=== PATIENT | female | born 2000 | race Caucasian/White ===

== ENCOUNTER → 2022-05-05 14:00 | Outpatient (BNVA) | payer MEDICAID, SELFPAY | PROVIDERS: Visit Provider Nurse Practitioner Women's Health | DX: N92.6 Irregular menstruation, unspecified (principal) | CPT/HCPCS: 81025 ==

== ENCOUNTER 2022-05-17 21:46 | Emergency (ER) | payer MEDICAID, SELFPAY ==
[2022-05-17 21:50] VITALS: BP 106/65; PULSE 92; RESP 16; TEMP 36.8; O2SAT 98; BMI 19.7
[2022-05-17 22:02] VITALS: BP 163/90; PULSE 72; RESP 16; TEMP 37; O2SAT 98; BMI 38.9
[2022-05-17 22:47] LABS: Add Urine Microscopic? YES; Bilirubin Urine Neg (Negative); Blood Urine 2+ (Negative); Glucose Urine UA Norm (Normal); Ketones Urine 3+ (Negative); Leukocyte Esterase Urine 1+ (Negative); Nitrate Urine Negative (Negative); Protein Urine Neg (Negative); Urine Appearance SL Hazy (CLEAR); Urine Color Dark Yellow (Yellow); Urobilinogen Urine Norm (Negative); pH Urine 5 (5-7)
--- NOTE | 2022-05-17 22:48 | ED_ITS ---
HPI - Nausea/Vomiting/Diarrhea General: Chief complaint: Nausea/Vomiting/Diarrhea Stated complaint: Vomiting\Spotting Time Seen by Provider: 05/17/22 22:39 History of Present Illness: Ms Reese is a 21-year-old -0-1-2 LMP 03/17/2022 presenting to the emergency department due to nausea vomiting. She reports onset of symptoms 3 days ago associated with lower abdominal and back cr amping. Minimal spotting yesterday however this is resolved. Symptoms are moderate to severe in intensity and worse with any p.o. intake. Associated generalized malaise and sore throat. No other specific changes in health, exacerbating, or alleviating factors identified. Onset (ago): day(s) Description of vomiting: watery Associated nausea: Yes Associated abdominal pain: Yes Location of pain: Other Pain consistency: constant Severity: moderate Quality: cramping Exacerbating factors: eating Relieving factors: none Context: other Associated symtoms: Reports nausea Review of Systems General: Reports: 10 or more systems reviewed and unremarkable except in HPI and below GI: Reports: nausea PFSH ED PFSH: Medical History No pertinent past medical history neghx: htn,dm,thyroid,dvt/pe PCP: None Surgical History No pertinent past surgical history Family History Mother Breast cancer dx ge 20's-- still living; poss lumpectomy and radiation Diabetes Ovarian cancer dx age unknown-- uncertain if hysterectomy Grandmother Hypertension Maternal Grandfather Stroke Maternal Family/Other Breast cancer Maternal Great Grandmother--dx age unknown Denies family history of Colon cancer Heart disease Hyperlipidemia Family history of thyroid problem Uterine cancer Female Reproductive History: Date of last menstrual period: 05/15/22 Physical Exam Const: COMMON NORMALS: alert GENERAL APPEARANCE: cooperative, well developed and ill appearing (somewhat secondary to vomitting) HENMT: COMMON NORMALS: normocephalic and atraumatic HEAD & SCALP: normocephalic and atraumatic THROAT: posterior oropharynx normal Eye: COMMON NORMALS: conjunctivae normal CONJUNCTIVA: Yes conjunctivae normal SCLERA: sclerae normal Neck/C-Spine: COMMON NORMALS: supple GENERAL: Yes trachea midline Resp: COMMON NORMALS: normal respiratory effort EFFORT & INSPECTION: Yes able to speak in complete sentences Cardio: COMMON NORMALS: regular rate and regular rhythm RATE: regular rate RHYTHM: regular rhythm GI: COMMON NORMALS: Soft to palpation PALPATION: Yes Soft to palpation and No Tenderness to palpation present (GI) : COMMON NORMALS: Yes no CVA tenderness BLADDER/KIDNEY EXAM: Yes no CVA tenderness OTHER: Pelvic exam performed with hydraulic chair assembler present. Cervical os visually closed without other acute abnormality identified. Back/Pelvis: COMMON NORMALS: no CVA tenderness Extremity: GENERAL: Yes normal exam except as noted and No edema Neuro: COMMON NORMALS: moves all extremities SENSORIUM/ORIENTATION: Yes alert and No Orientation impaired Psych: COMMON NORMALS: mental status grossly normal and Normal thought process present THOUGHT PROCESS: Normal thought process present Course Vital Signs: Vital signs: Vital Signs Temperature 98.2 F 05/18/22 02:12 Pulse Rate 78 05/18/22 02:12 Respiratory Rate 18 05/18/22 02:12 Blood Pressure 131/68 05/18/22 02:12 Pulse Oximetry 99 05/18/22 02:12 Oxygen Delivery Me thod 05/17/22 22:02 MDM - Nausea/Vomiting/Diarrhea Medical Decision Making 21-year-old lady presenting with abdominal symptoms and nausea and vomiting in the context of . Patient is nontoxic in appearance without evidence of peritonitis on abdominal exam. Prior ultrasound report from 05/07/2022 confirming IUP reviewed. Labs notable for leukocytosis and normal hemoglobin, chemistry panel with mild evidence of dehydration. Urinalysis with hematuria and ketones, sample is grossly contaminated with squamous epithelial cells limiting interpretation. Patient blood type O+. Wet prep negative. POCUS positive for cardiac activity at approx rate 170. Patient improved with ED treatment and able to tolerate oral intake. Patient satisfied for outpatient management with return precautions and follow-up plan discussed. Patient is comfortable with plan. Medical Records I reviewed the patient's medical records. Lab Data I reviewed the patient's lab results. : 05/17/22 22:56 05/17/22 22:56 Laboratory Results WBC 14.7 10^3/uL (4.0-10.0) H 05/17/22 22:56 RBC 3.93 10^6/uL (4.1-5.3) L 05/17/22 22:56 Hgb 12.2 g/dL (11.5-15.3) 05/17/22 22:56 Hct 37.2 % (37.0-47.0) 05/17/22 22:56 MCV 94.7 fl (81-99) 05/17/22 22:56 MCH 31.0 pg (28.0-34.0) 05/17/22 22:56 MCHC 32.8 g/dL (30.0-36.0) 05/17/22 22:56 RDW 12.8 % (12.1-15.1) 05/17/22 22:56 Plt Count 295 10^3/cmm (130-400) 05/17/22 22:56 MPV 9.7 fL (7.4-10.4) 05/17/22 22:56 Neut % (Auto) 90.5 % 05/17/22 22:56 Lymph % (Auto) 5.7 % 05/17/22 22:56 [place] % (Auto) 3.0 % 05/17/22 22:56 Eos % (Auto) 0.0 % 05/17/22 22:56 Baso % (Auto) 0.3 % 05/17/22:56 Neut # (Auto) 13.28 10^3/uL (1.8-7.7) H 05/17/22 22:56 Lymph # (Auto) 0.8 10^3/uL (0.8-4.8) 05/17/22 22:56 [place] # (Auto) 0.4 10^3/uL (0.2-0.9) 05/17/22 22:56 Eos # (Auto) 0.0 10^3/uL (0.0-0.8) 05/17/22 22:56 Baso # (Auto) 0.0 10^3/uL (0.0-0.1) 05/17/22 22:56 Nucleated RBC % (auto) 0 % 05/17/22 22:56 Nucleated RBCs # 0.0 /100WBC 05/17/22 22:56 Sodium 134 mmol/L (136-145) L 05/17/22 22:56 Potassium 3.8 mmol/L (3.5-5.1) 05/17/22 22:56 Chloride 96 mmol/L (98-107) L 05/17/22 22:56 Carbon Dioxide 23 mmol/L (22-29) 05/17/22 22:56 Anion Gap 18.8 (5-19) 05/17/22 22:56 BUN 11 mg/dL (6-20) 05/17/22 22:56 Creatinine 0.5 mg/dL (0.5-0.9) 05/17/22 22:56 GFR Calculation 152.9 mL/min (90-130) H 05/17/22 22:56 Glucose 94 mg/dL (65-115) 05/17/22 22:56 Calculated Osmolality 277 mOsm/kg (285-295) L 05/17/22:56 Calcium 9.6 mg/dL (8.5-10.5) 05/17/22 22:56 Total Bilirubin 0.7 mg/dL (0.15-1.2) 05/17/22 22:56 AST 15 U/L (0-32) 05/17/22:56 ALT 14 U/L (0-33) 05/17/22 22:56 Alkaline Phosphatase 51 U/L (35-105) 05/17/22 22:56 Total Protein 7.5 g/dL (6.6-8.7) 05/17/22 22:56 Albumin 4.7 g/dL (3.5-5.2) 05/17/22 22:56 Globulin 2.8 g/dL (1.3-4.6) 05/17/22 22:56 Ser , Semi-Qnt 989835.00 mIU/mL 05/17/22 22:56 Urine Color Dark yellow (Yellow) 05/17/22 22:37 Urine Appearance Sl hazy (CLEAR) A 05/17/22 22:37 Urine pH 5 (5-7) 05/17/22 22:37 Ur Specific [place] 1.030 (1.005-1.030) 05/17/22 22:37 Urine Protein Neg (Negative) 05/17/22 22:37 Urine Glucose (UA) Norm (Normal) 05/17/22 22:37 Urine Ketones 3+ (Negative) H 05/17/22 22:37 Urine Blood 2+ (Negative) H 05/17/22 22:37 Urine Nitrate Negative (Negative) 05/17/22 22:37 Urine Bilirubin Neg (Negative) 05/17/22 22:37 Urine Urobilinogen Norm mg/dL (Negative) 05/17/22 22:37 Ur Leukocyte Esterase 1+ (Negative) H 05/17/22 22:37 Urine RBC 5-10 /hpf (0-2) H 05/17/22 22:37 Urine WBC 10-15 /hpf (0-5) H 05/17/22 22:37 Ur Squamous Epith Cells Too numerous to cnt /hpf (0-5) H 05/17/22 22:37 Amorphous Sediment Not Reportable 05/17/22 22:37 Urine Bacteria 3+ /hpf (NONE) H 05/17/22 22:37 Blood Type O Positive 05/17/22 22:56 Rho(D) Type Positive 05/17/22 22:56 Discharge Plan Discharge Patient Disposition: Home Clinical Impression: Nausea and vomiting during , Dehydration, Abdominal pain affecting Condition: Stable Prescriptions: New doxylamine succinate 25 mg tablet 12.5 mg PO Q6H PRN (Reason: nausea and vomiting) Qty: 20 0RF pyridoxine (vitamin B6) 25 mg tablet 25 mg PO QID PRN (Reason: nausea and vomiting) Qty: 20 0RF Reglan 10 mg tablet 10 mg PO QID PRN (Reason: nausea and vomiting) Qty: 28 0RF Rx Instructions: 2nd line No Action Gummies 400 mcg-35 mg- 25 mg-5 mg tablet,chewable PO ondansetron HCl 4 mg tablet 4 mg PO Q6H PRN (Reason: nausea and vomiting) Qty: 30 2RF Discharge Orders: Discharge ED (Routine); Ordered 05/18/22 Ordered By: Sandor Silverman Discharge Diet: Advance as tolerated and Clear Liquid Discharge Activity: Increase activity as tolerated Patient Instructions: Nausea and Vomiting in (ED), Dehydration (ED), Abdominal Pain in (ED) Activity Restrictions/Additional Instructions: Thank you for visiting the emergency department. You were seen evaluated for abdominal pain with nausea vomiting during . The exact cause of your symptoms is unclear though we are pleased that you had improvement. Please follow-up with your [facility] registered nurse rn. Return to the emergency department for uncontrolled symptoms or anything else that you are concerned about a feel needs emergency department evaluation. Coding Level of Care Code ED Cloth Cutter for Chg Fwd
[2022-05-17 22:50] LABS: Bacteria Urine 3+ /hpf; Squamous Epithelial Cell Urine TOO NUMEROUS TO CNT /hpf (0-5)
[2022-05-17 22:51] LABS: Add Urine Culture? No
[2022-05-17 23:26] LABS: Basophils % 0.3 %; Hematocrit 37.2 % (37.0-47.0); Hemoglobin 12.2 g/dL (11.5-15.3); Lymphocytes # 0.8 10^3/uL (0.8-4.8); Lymphocytes % 5.7 %; Mean Corpuscular HGB Conc 32.8 g/dL (30.0-36.0); Mean Corpuscular Volume 94.7 fl (81-99); Mean Platelet Volume 9.7 fL (7.4-10.4); Monocytes # 0.4 10^3/uL (0.2-0.9); Neutrophils # 13.28 10^3/uL (1.8-7.7); Neutrophils % 90.5 %; Nucleated Red Blood Cells % 0 %; Platelet Count 295 10^3/cmm (130-400); Red Blood Count 3.93 10^6/uL (4.1-5.3); Red Cell Distribution Width 12.8 % (12.1-15.1); White Blood Count 14.7 10^3/uL (4.0-10.0)
[2022-05-17] MEDS: metoclopramide 5 mg/mL SDV 2 mL 10 MG IVP (23:28)
[2022-05-17] MEDS: sodium chloride 0.9% 1,000 ML 999 ML IV (23:28)
[2022-05-17] MEDS: acetaminophen 1,000 MG/100 ML PIGGYBACK 400 MG IV (23:38)
[2022-05-17 23:58] LABS: Alanine Aminotransferase 14 U/L (0-33); Albumin Level 4.7 g/dL (3.5-5.2); Alkaline Phosphatase 51 U/L (35-105); Anion Gap 18.8 (5-19); Aspartate Amino Transferase 15 U/L (0-32); Blood Urea Nitrogen 11 mg/dL (6-20); Calcium 9.6 mg/dL (8.5-10.5); Carbon Dioxide 23 mmol/L (22-29); Chloride 96 mmol/L (98-107); Globulin 2.8 g/dL (1.3-4.6); Glomerular Filtration Rate 152.9 mL/min (90-130); Glucose 94 mg/dL (65-115); Osmolality Calculated 277 mOsm/kg (285-295); Potassium 3.8 mmol/L (3.5-5.1); Sodium 134 mmol/L (136-145); Total Bilirubin 0.7 mg/dL (0.15-1.2); Total Protein 7.5 g/dL (6.6-8.7)
[2022-05-18] MEDS: sodium chloride 0.9% 1,000 ML 999 ML IV (00:35)
[2022-05-18] MEDS: ondansetron 2 mg/ML SDV 2 mL 4 MG IVP (00:35)
[2022-05-18 02:12] VITALS: BP 131/68; PULSE 78; RESP 18; TEMP 36.8; O2SAT 99
== END 2022-05-18 02:15 | disposition home or self-care (01) ==
PROVIDERS: Nurse Practitioner Family; Emergency Provider Emergency Medicine
DX: O21.9 Vomiting of pregnancy, unspecified (principal); O26.899 Other specified pregnancy related conditions, unspecified trimester; Z3A.00 Weeks of gestation of pregnancy not specified; E86.0 Dehydration; R10.9 Unspecified abdominal pain
CPT/HCPCS: 80053; 81001; 84702; 85025; 86900; 87210; 96361; 96374; 96375; 99284; J2405; J2765; J7030

== ENCOUNTER 2022-05-25 14:42 | Emergency (ER) | payer MEDICAID, SELFPAY ==
[2022-05-25 15:00] VITALS: BP 116/74; PULSE 88; RESP 18; TEMP 36.6; O2SAT 100; BMI 18.1
--- NOTE | 2022-05-25 16:12 | W.ED.GENADLT ---
Documented by User: Navid Huang DO 05/25/22 19:04 HPI - General Adult General: Chief complaint: General Medical Stated complaint: 10ish wk preg, poss miscarriage Time Seen by Provider: 05/25/22 15:43 Source: patient Mode of arrival: ambulatory History of Present Illness: 21-year-old female comes in today complaining of episode of vaginal bleeding several days ago. She was seen at another facility had a beta-hCG of 147,000+. She not had any vaginal bleeding since she is concerned about the viability of her . Reviewing her old records in [facility] she has previously had a confirmed intrauterine and can confirmed first trimester ultrasound which puts her at 9 weeks and 6 days today. She is Rh+ according to the notes. She not have any cramping or pain at this point. Onset (ago): day(s) Associated symptoms: Deny chest pain, confusion, cough, diaphoresis, decreased appetite, dyspnea, fevers/chills, headache(s), malaise, nausea, palpitations, seizures, short of breath, syncope, vomiting or weakness Treatments prior to arrival: none Review of Systems Const: Denies: fever(s), chills, malaise or diaphoresis ENMT: Denies: throat pain, ear or mastoid pain, nasal discharge or nasal congestion Card: Denies: chest pain, palpitations or syncope Resp: Denies: dyspnea GI: Denies: abdominal pain, nausea or vomiting : Denies: flank pain, difficulty voiding, dysuria, urinary frequency or urinary urgency Neuro: Denies: headache(s) or confusion PFSH ED PFSH: Medical History No pertinent past medical history neghx: htn,dm,thyroid,dvt/pe PCP: None Surgical History No pertinent past surgical history Family History Mother Breast cancer dx ge 20's-- still living; poss lumpectomy and radiation Diabetes Ovarian cancer dx age unknown-- uncertain if hysterectomy Grandmother Hypertension Maternal Grandfather Stroke Maternal Family/Other Breast cancer Maternal Great Grandmother--dx age unknown Denies family history of Colon cancer Heart disease Hyperlipidemia Family history of thyroid problem Uterine cancer Social History Smoking and tobacco status: former smoker (quit with confirmation of -- 04/2022) Female Reproductive History: Date of last menstrual period: 03/17/22 Physical Exam Const: GENERAL APPEARANCE: cooperative and comfortable ORIENTATION/CONSCIOUSNESS: Yes awake, Yes oriented to person, Yes oriented to place and Yes oriented to time HENMT: COMMON NORMALS: normocephalic, atraumatic and hearing grossly normal bilaterally HEAD & SCALP: normocephalic and atraumatic Neck/C-Spine: COMMON NORMALS: no JVD Cardio: COMMON NORMALS: no JVD, regular rate, regular rhythm and No murmurs present (Cardio) RATE: regular rate RHYTHM: regular rhythm Extremity: COMMON NORMALS: normal to inspection, capillary refill normal, no clubbing, cyanosis or edema, no calf tenderness and no pedal edema Neuro: SENSORIUM/ORIENTATION: Yes oriented to person, Yes oriented to place and Yes oriented to time Skin: COMMON NORMALS: no rashes or lesions noted GENERAL SKIN EXAM: no rashes or lesions noted Course Vital Signs: Vital signs: Vital Signs Temperature 97.9 F 05/25/22 15:00 Pulse Rate 74 05/25/22 18:15 Respiratory Rate 18 05/25/22 15:00 Blood Pressure 118/70 05/25/22 18:15 Pulse Oximetry 100 05/25/22 15:00 Oxygen Delivery Me thod 05/25/22 15:00 MDM - General Adult Medical Decision Making Care signed out to Dr. Medina at change of shift. See final notes for diagnosis and disposition. Medical Records I reviewed the patient's medical records. Lab Data Radiology Impressions Obstetrics Ultrasound 05/25/22 16:20 IMPRESSION: 1. Limited transabdominal ultrasound exam. Single live intrauterine fetus with good cardiac activity, at about 9 weeks 5 days gestation based on CRL. 2. Large heterogeneous collection, likely a prominent subchorionic hemorrhage as described above. Clinical/sonographic follow-up may be helpful. 3. Other nonacute findings as described above. Suboptimally visualized maternal cervix. Follow-up with endovaginal imaging may be obtained if clinically indicated. Laboratory Results Ser , Semi-Qnt 870074.00 mIU/mL 05/25/22 16:11 Discharge Plan Discharge Patient Disposition: Home Clinical Impression: Threatened miscarriage Condition: Stable Prescriptions: No Action Gummies 400 mcg-35 mg- 25 mg-5 mg tablet,chewable PO doxylamine succinate 25 mg tablet 12.5 mg PO Q6H PRN (Reason: nausea and vomiting) Qty: 20 0RF pyridoxine (vitamin B6) 25 mg tablet 25 mg PO QID PRN (Reason: nausea and vomiting) Qty: 20 0RF Reglan 10 mg tablet 10 mg PO QID PRN (Reason: nausea and vomiting) Qty: 28 0RF Rx Instructions: 2nd line Discharge Orders: Discharge ED (Routine); Ordered 05/25/22 Ordered By: Otis Medina Referrals: Jacqueline Jasso MD [Physician] - 1-3 days Discharge Diet: Advance as tolerated Discharge Activity: Resume usual activity Patient Instructions: Threatened Miscarriage (ED) Activity Restrictions/Additional Instructions: No heavy lifting no sex. Coding Level of Care Code ED Credit Reference Clerk for Chg Fwd Exam Detailed Documented by User: Otis Medina MD 05/25/22 18:11 HPI - General Adult General: Chief complaint: General Medical Stated complaint: 10ish wk preg, poss miscarriage Time Seen by Provider: 05/25/22 15:43 PFSH ED PFSH: Medical History No pertinent past medical history neghx: htn,dm,thyroid,dvt/pe PCP: None Surgical History No pertinent past surgical history Family History Mother Breast cancer dx ge 20's-- still living; poss lumpectomy and radiation Diabetes Ovarian cancer dx age unknown-- uncertain if hysterectomy Grandmother Hypertension Maternal Grandfather Stroke Maternal Family/Other Breast cancer Maternal Great Grandmother--dx age unknown Denies family history of Colon cancer Heart disease Hyperlipidemia Family history of thyroid problem Uterine cancer Social History Smoking and tobacco status: former smoker (quit with confirmation of -- 04/2022) Course Vital Signs: Vital signs: Vital Signs Temperature 97.9 F 05/25/22 15:00 Pulse Rate 74 05/25/22 18:15 Respiratory Rate 18 05/25/22 15:00 Blood Pressure 118/70 05/25/22 18:15 Pulse Oximetry 100 05/25/22 15:00 Oxygen Delivery Me thod 05/25/22 15:00 MDM - General Adult Medical Decision Making Care signed out to Dr. Medina at change of shift. See final notes for diagnosis and disposition. Ultrasound showed IUP with heart rate she also has a subchronic hemorrhage I did discuss the case with Dr. Jasso who is going to follow her tomorrow or inform patient she needs to see her in 1 to 2 days return if any worsening bleeding she is stable for discharge. Lab Data Radiology Impressions Obstetrics Ultrasound 05/25/22 16:20 IMPRESSION: 1. Limited transabdominal ultrasound exam. Single live intrauterine fetus with good cardiac activity, at about 9 weeks 5 days gestation based on CRL. 2. Large heterogeneous collection, likely a prominent subchorionic hemorrhage as described above. Clinical/sonographic follow-up may be helpful. 3. Other nonacute findings as described above. Suboptimally visualized maternal cervix. Follow-up with endovaginal imaging may be obtained if clinically indicated. Laboratory Results Ser , Semi-Qnt 500112.00 mIU/mL 05/25/22 16:11 Discharge Plan Discharge Patient Disposition: Home Clinical Impression: Threatened miscarriage Condition: Stable Prescriptions: No Action Gummies 400 mcg-35 mg- 25 mg-5 mg tablet,chewable PO doxylamine succinate 25 mg tablet 12.5 mg PO Q6H PRN (Reason: nausea and vomiting) Qty: 20 0RF pyridoxine (vitamin B6) 25 mg tablet 25 mg PO QID PRN (Reason: nausea and vomiting) Qty: 20 0RF Reglan 10 mg tablet 10 mg PO QID PRN (Reason: nausea and vomiting) Qty: 28 0RF Rx Instructions: 2nd line Discharge Orders: Discharge ED (Routine); Ordered 05/25/22 Ordered By: Otis Medina Referrals: Jacqueline Jasso MD [Physician] - 1-3 days Discharge Diet: Advance as tolerated Discharge Activity: Resume usual activity Patient Instructions: Threatened Miscarriage (ED) Activity Restrictions/Additional Instructions: No heavy lifting no sex. Coding Level of Care Code ED Credit Reference Clerk for Chg Fwd Exam Detailed
--- NOTE | 2022-05-25 16:20 | USR_ITS ---
PROCEDURE INFORMATION: Exam: US , Limited Exam date and time: 05/25/2022 4:56 PM Age: 21 years old Clinical indication: Lmp or gestational age (in weeks): 9w5d; Antepartum complications; Bleeding; ; Additional info: Elevated hcg LABS AND CLINICAL REPORTS: Last menstrual period start date: 03/17/2022 Gestational age (Established): 9 w 6 d Estimated due date (Established): 12/22/2022 TECHNIQUE: Imaging protocol: Real-time ultrasound of the maternal uterus with image documentation. Exam focused on the clinical indication. COMPARISON: US OB transvaginal CC 05/07/2022 9:44 AM FINDINGS: Gestation: Single intrauterine fetus. heart rate: 164 bpm Placenta: Placenta is poorly visualized at this time but is probably mostly anterior in position. Amniotic fluid: Normal amount of amniotic fluid. [place]-rump length measures 2.9 cm, approximately 9 weeks 5 days gestation. Clinical gestational age was not provided however there has been appropriate interval growth since most recent exam. BIOMETRY: Gestational age (AUA): 9 w 5 d based on CRL MATERNAL: Cervix: Cervical length measures 3 cm however maternal cervix is suboptimally visualized transabdominally. Right ovary/adnexa: Right ovary not definitively identified. Left ovary/adnexa: Left ovary measures 2.1 x 2.2 x 1.8 cm. Left ovary contains a unilocular cyst with internal echoes, likely a hemorrhagic corpus luteum, measuring 1.4 x 1.8 by 1.3 cm. No stromal edema or other suspicious features. There is Doppler flow in left ovarian parenchyma demonstrating normal spectral waveform. Intraperitoneal space: Limited transabdominal OB ultrasound images were obtained in an acute setting. Details are somewhat limited. Endovaginal examination was not performed. No obvious free pelvic fluid. Other findings: A somewhat discrete area of heterogeneous material with internal echoes and through transmission in the anterior aspect, measuring 4.7 x 2.5 x 4.6 cm with discernible internal color Doppler vascularity. US/US OB limited [id number] IMPRESSION: 1. Limited transabdominal ultrasound exam. Single live intrauterine fetus with good cardiac activity, at about 9 weeks 5 days gestation based on CRL. 2. Large heterogeneous collection, likely a prominent subchorionic hemorrhage as described above. Clinical/sonographic follow-up may be helpful. 3. Other nonacute findings as described above. Suboptimally visualized maternal cervix. Follow-up with endovaginal imaging may be obtained if clinically indicated.
[2022-05-25] MEDS: promethazine 25 mg/mL SDV 1 mL 12.5 MG IM (17:45)
[2022-05-25 18:15] VITALS: BP 118/70; PULSE 74
== END 2022-05-25 18:16 | disposition home or self-care (01) ==
PROVIDERS: Family Medicine; Emergency Provider Emergency Medicine
DX: O20.0 Threatened abortion (principal); Z87.891 Personal history of nicotine dependence; Z3A.09 9 weeks gestation of pregnancy
CPT/HCPCS: 36415; 76815; 84702; 96372; 99284; J2550

== ENCOUNTER → 2022-05-26 11:56 | Outpatient (BNVA) | payer MEDICAID, SELFPAY | PROVIDERS: Visit Provider Obstetrics & Gynecology | DX: O09.90 Supervision of high risk pregnancy, unspecified, unspecified trimester (principal); Z3A.00 Weeks of gestation of pregnancy not specified | CPT/HCPCS: 80307; 84315; 87086 ==

== ENCOUNTER → 2022-06-18 14:25 | Outpatient (BNVA) | payer MEDICAID, SELFPAY | PROVIDERS: Visit Provider Obstetrics & Gynecology | DX: O09.899 Supervision of other high risk pregnancies, unspecified trimester; Z3A.00 Weeks of gestation of pregnancy not specified | CPT/HCPCS: 80053; 80307; 84315; 84443; 85025; 86592; 86762; 86803; 86850; 86900; 87086; 87340; 87491; 87591; 87661; 87806; 88175 ==

== ENCOUNTER → 2022-07-16 09:50 | Outpatient (BNVA) | payer MEDICAID, SELFPAY | PROVIDERS: Visit Provider Obstetrics & Gynecology | DX: O09.899 Supervision of other high risk pregnancies, unspecified trimester (principal); Z3A.00 Weeks of gestation of pregnancy not specified | CPT/HCPCS: 82950; 85025 ==

== ENCOUNTER 2022-07-27 12:02 | Emergency (ER) | payer MEDICAID, SELFPAY ==
[2022-07-27 12:14] VITALS: BP 104/71; PULSE 85; RESP 14; TEMP 36.8; O2SAT 98
--- NOTE | 2022-07-27 12:41 | W.ED.BACK ---
HPI - Back Pain/Injury General: Chief Complaint: Back Pain/Injury Stated Complaint: 18 weeks leaking fluid, lower back pain Time Seen by Provider: 07/27/22 12:22 Source: patient Mode of arrival: ambulatory History of Present Illness: 21-year-old SAB 1 female presents emergency room complaining of vaginal leakage. She had watery vaginal leakage since last night. She had a subchorionic hemorrhage earlier on in the she denies any vaginal bleeding. She has a little bit of pelvic cramping she was recently diagnosed with a UTI. Onset (ago): hour(s) Timing: constant Exacerbating factors: none Relieving factors: none Associated symptoms: Deny abdominal pain, chills, change in bowel habits, dysuria, fatigue, fecal incontinence, fever(s), hematuria, myalgias, nausea, tingling/numbness/burning, urinary frequency, urinary urgency, vomiting or weakness Review of Systems Const: Denies: fever(s), chills, fatigue or malaise ENMT: Denies: throat pain, ear or mastoid pain, nasal discharge or nasal congestion Card: Denies: chest pain, palpitations, irregular heart rhythm, edema, dyspnea on exertion or orthopnea Resp: Denies: dyspnea, productive cough or non-productive cough GI: Denies: abdominal pain, nausea, vomiting, fecal incontinence or change in bowel habits : Reports: vaginal discharge (watery); Denies: dysuria, urinary frequency, urinary urgency or hematuria Musc: Denies: neck pain or back pain Skin/Breast: Denies: rash or pruritus PFSH ED PFSH: Medical History No pertinent past medical history neghx: htn,dm,thyroid,dvt/pe PCP: None Surgical History No pertinent past surgical history Family History Mother Breast cancer dx ge 20's-- still living; poss lumpectomy and radiation Diabetes Ovarian cancer dx age unknown-- uncertain if hysterectomy Grandmother Hypertension Maternal Grandfather Stroke Maternal Family/Other Breast cancer Maternal Great Grandmother--dx age unknown Denies family history of Colon cancer Heart disease Hyperlipidemia Family history of thyroid problem Uterine cancer Social History Smoking and tobacco status: former smoker (quit with confirmation of -- 04/2022) Female Reproductive History: Date of last menstrual period: 03/17/22 Physical Exam Const: GENERAL APPEARANCE: cooperative and comfortable ORIENTATION/CONSCIOUSNESS: Yes awake HENMT: COMMON NORMALS: normocephalic, atraumatic and hearing grossly normal bilaterally HEAD & SCALP: normocephalic and atraumatic Resp: COMMON NORMALS: normal respiratory effort, No retractions, No use of accessory muscles and clear to auscultation bilaterally AUSCULTATION: clear to auscultation bilaterally Cardio: COMMON NORMALS: regular rate, regular rhythm and No murmurs present (Cardio) RATE: regular rate RHYTHM: regular rhythm GI: COMMON NORMALS: Soft to palpation and No hepatosplenomegaly present AUSCULTATION: Yes normoactive bowel sounds PALPATION: Yes Soft to palpation, No Tenderness to palpation present (GI), No Guarding due to palpation present (GI) and Yes No hepatosplenomegaly present Extremity: COMMON NORMALS: normal to inspection, capillary refill normal, no clubbing, cyanosis or edema, no calf tenderness and no pedal edema Skin: COMMON NORMALS: no rashes or lesions noted GENERAL SKIN EXAM: no rashes or lesions noted Course Vital Signs: Vital signs: Vital Signs Temperature 98.2 F 07/27/22 12:14 Pulse Rate 85 07/27/22 12:14 Respiratory Rate 14 07/27/22 12:14 Blood Pressure 104/71 07/27/22 12:14 Pulse Oximetry 98 07/27/22 12:14 Oxygen Delivery Me thod 07/27/22 12:14 MDM - Back Pain/Injury Medical Decision Making Testing for amniotic fluid leakage was negative. Physical exam just showed mucus at cervical os GC chlamydia are pending wet mount was negative. She did have some signs of mild dehydration think she is getting back discomfort from muscle spasms given IV fluids discharge home follow-up with OB as needed. There was no sign of infection in the UA. Medical Records I reviewed the patient's medical records. Labs I reviewed the patient's lab results. Laboratory Results Insulin-like GF I Negative 07/27/22 13:47 Urine Color Yellow (Yellow) 07/27/22 12:41 Urine Appearance Clear (CLEAR) 07/27/22 12:41 Urine pH 6 (5-7) 07/27/22 12:41 Ur Specific [place] 1.020 (1.005-1.030) 07/27/22 12:41 Urine Protein Neg (Negative) 07/27/22 12:41 Urine Glucose (UA) Norm (Normal) 07/27/22 12:41 Urine Ketones 1+ (Negative) H 07/27/22 12:41 Urine Blood Neg (Negative) 07/27/22 12:41 Urine Nitrate Negative (Negative) 07/27/22 12:41 Urine Bilirubin Neg (Negative) 07/27/22 12:41 Urine Urobilinogen Norm mg/dL (Negative) 07/27/22 12:41 Ur Leukocyte Esterase Negative (Negative) 07/27/22 12:41 Discharge Plan Discharge Patient Disposition: Home Clinical Impression: Dehydration, Musculoskeletal back pain, Second trimester Condition: Stable Prescriptions: No Action Gummies 400 mcg-35 mg- 25 mg-5 mg tablet,chewable 1 tab PO DAILY Discharge Orders: Discharge ED (Routine); Ordered 07/27/22 Ordered By: Navid Huang Discharge Diet: Usual diet Discharge Activity: Resume usual activity Patient Instructions: Opioid Safety, Pain Management Activity Restrictions/Additional Instructions: You were seen today for concern of vaginal fluid leak. Exam and testing done shows no evidence of amniotic fluid. Cultures were done that are still pending vaginal swab wet mount was unremarkable. Urine showed ketones but no signs of infection. Did appear to be behind on fluid which I think is causing some back spasm and discomfort. Increase fluids by mouth. Follow-up with your OB as previously scheduled. Coding Level of Care Code ED Research Soil Scientist for Chg Fwd Exam Detailed
[2022-07-27 12:53] LABS: Add Urine Microscopic? NO; Charge for UA Resulting for Rev
[2022-07-27 12:56] LABS: Bilirubin Urine Neg (Negative); Blood Urine Neg (Negative); Glucose Urine UA Norm (Normal); Ketones Urine 1+ (Negative); Leukocyte Esterase Urine Negative (Negative); Nitrate Urine Negative (Negative); Protein Urine Neg (Negative); Urine Appearance Clear (CLEAR); Urine Color Yellow (Yellow); Urobilinogen Urine Norm (Negative); pH Urine 6 (5-7)
[2022-07-27 14:32] LABS: Actim Prom Negative
[2022-07-27] MEDS: sodium chloride 0.9% 1,000 ML 999 ML IV ×2 (14:54→16:06)
[2022-07-27 16:07] VITALS: BP 114/65; PULSE 80; RESP 17; O2SAT 100
== END 2022-07-27 16:10 | disposition home or self-care (01) ==
PROVIDERS: Nurse Practitioner Family; Emergency Provider Family Medicine
DX: O26.892 Other specified pregnancy related conditions, second trimester (principal); E86.0 Dehydration; M79.18 Myalgia, other site; Z3A.18 18 weeks gestation of pregnancy
CPT/HCPCS: 81003; 84112; 87210; 87491; 87591; 96360; 99284; J7030

== ENCOUNTER → 2022-08-03 09:26 | Outpatient (BNVA) | payer MEDICAID, SELFPAY | PROVIDERS: Visit Provider Obstetrics & Gynecology | DX: Z36.89 Encounter for other specified antenatal screening (principal) | CPT/HCPCS: 76805 ==

== ENCOUNTER → 2022-08-04 12:00 | Outpatient (BNVA) | payer MEDICAID, SELFPAY | PROVIDERS: Visit Provider Obstetrics & Gynecology | DX: O09.899 Supervision of other high risk pregnancies, unspecified trimester (principal); Z3A.00 Weeks of gestation of pregnancy not specified | CPT/HCPCS: 84315; 87086 ==

== ENCOUNTER 2024-01-15 12:12 | Emergency (ER) | payer MEDICAID, SELFPAY ==
[2024-01-15 12:22] VITALS: BP 138/86; PULSE 83; RESP 16; TEMP 36.8; O2SAT 99
--- NOTE | 2024-01-15 12:46 | ED_ITS ---
HPI - Female Genitourinary 2 General: Chief complaint: Urogenital-Female Stated complaint: back pain, blood in urine Time Seen by Provider: 01/15/24 12:28 History of Present Illness: Patient presents to the ER with 2 weeks of abdominal cramping and bilateral flank pain for the last 2 days. She did notice some hematuria today. Patient this pain is sharp and stabbing when it comes but it comes and goes with no known rhyme or reason. Patient did take multiple test at home and they were negative. Patient also stated she started her menses today. Date of Last Menstrual Period: 01/15/24 Review of Systems 2 General: Reports: 10 or more systems reviewed and unremarkable except in HPI and below PFSH ED 2 PFSH: Medical History No pertinent past medical history neghx: htn,dm,thyroid,dvt/pe PCP: None Surgical History No pertinent past surgical history Family History Mother Breast cancer dx ge 20's-- still living; poss lumpectomy and radiation Diabetes Ovarian cancer dx age unknown-- uncertain if hysterectomy Grandmother Hypertension Maternal Grandfather Stroke Maternal Family/Other Breast cancer Maternal Great Grandmother--dx age unknown Denies family history of Colon cancer Heart disease Hyperlipidemia Family history of thyroid problem Uterine cancer Social History Smoking and tobacco/nicotine status: former use of tobacco/nicotine (quit with confirmation of -- 04/2022) Female Reproductive History: Date of last menstrual period: 01/15/24 Physical Exam 2 Const: COMMON NORMALS: no acute distress, average body habitus, patient oriented x3, no limitations, healthy appearing, alert and well nourished HENMT: COMMON NORMALS: normocephalic, atraumatic, hearing grossly normal bilaterally, external ears normal, Normal external nose present and moist oral mucous membranes HEAD & SCALP: normocephalic and atraumatic NOSE: Normal external nose present EXTERNAL EAR: Yes external ears normal Neck/C-Spine: COMMON NORMALS: no JVD Chest: COMMONS NORMALS: normal inspection of the chest and normal palpation of entire chest wall Resp: COMMON NORMALS: normal respiratory effort, No retractions, No use of accessory muscles and clear to auscultation bilaterally AUSCULTATION: clear to auscultation bilaterally Cardio: COMMON NORMALS: no JVD, regular rate, regular rhythm, S1 normal heart sound present, S2 normal heart sound present, No gallops present (Cardio), No clicks present (Cardio) and No murmurs present (Cardio) RATE: regular rate RHYTHM: regular rhythm HEART SOUNDS: S1 normal heart sound present and S2 normal heart sound present GI: COMMON NORMALS: Normal to inspection, nondistended, normoactive bowel sounds present, Soft to palpation and No hepatosplenomegaly present; negative for non-tender (Mildly tender to palpation over suprapubic region) P ALPATION: Yes Soft to palpation and Yes No hepatosplenomegaly present Neuro: COMMON NORMALS: patient oriented x3 SENSORIUM/ORIENTATION: Yes alert Course 2 Vital Signs: Vital signs: Vital Signs Temperature 98.3 F 01/15/24 12:22 Pulse Rate 64 01/15/24 14:42 Respiratory Rate 14 01/15/24 14:42 Blood Pressure 109/76 01/15/24 14:42 Pulse Oximetry 97 01/15/24 14:42 Oxygen Delivery Me thod Nasal Cannula 01/15/24 13:59 Oxygen Flow Rate 2 01/15/24 13:59 MDM - Female Medical Decision Making Patient had lab work and x-ray lab work included CBC CMP urinalysis hCG all which was negative, x-ray of the abdomen was negative, these results was discussed with the patient who understood she needs further workup. Patient be referred back to her family practice doc for this workup. Patient be discharged from the ER. Differential Diagnosis Likely abdominal pain; Unlikely acute appendicitis, calculus of kidney, constipation, diverticulitis, endometriosis, gastroenteritis, pancreatitis or small bowel obstruction Medical Records I reviewed the patient's medical records. Lab Data I reviewed the patient's lab results. 01/15/24 13:36 01/15/24 13:36 Radiology Impressions Abdomen X-Ray 01/15/24 13:30 IMPRESSION: No acute findings. Laboratory Results WBC 5.70 10^3/uL (3.29-11.43) 01/15/24 13:36 RBC 4.25 10^6/uL (3.85-5.65) 01/15/24 13:36 Hgb 12.90 g/dL (11.27-16.99) 01/15/24 13:36 Hct 38.9 % (36-47) 01/15/24 13:36 MCV 91.5 fl (85-98) 01/15/24 13:36 MCH 30.4 pg (27-33) 01/15/24 13:36 MCHC 33.2 g/dL (30-55) 01/15/24 13:36 RDW 12.6 % (12.1-15.1) 01/15/24 13:36 Plt Count 226 10^3/cmm (157-399) 01/15/24 13:36 MPV 10.4 fL (7.4-10.4) 01/15/24 13:36 Neut % (Auto) 52.5 % 01/15/24 13:36 Lymph % (Auto) 40.5 % 01/15/24 13:36 Dare % (Auto) 5.8 % 01/15/24 13:36 Eos % (Auto) 0.5 % 01/15/24 13:36 Baso % (Auto) 0.5 % 01/15/24 13:36 Neut # (Auto) 2.99 10^3/uL (1.8-7.7) 01/15/24 13:36 Lymph # (Auto) 2.3 10^3/uL (0.8-4.8) 01/15/24 13:36 Dare # (Auto) 0.3 10^3/uL (0.2-0.9) 01/15/24 13:36 Eos # (Auto) 0.0 10^3/uL (0.0-0.8) 01/15/24 13:36 Baso # (Auto) 0.0 10^3/uL (0.0-0.1) 01/15/24 13:36 Nucleated RBC % (auto) 0 % 01/15/24 13:36 Nucleated RBCs # 0.0 /100WBC 01/15/24 13:36 Sodium 141 mmol/L (136-145) 01/15/24 13:36 Potassium 3.8 mmol/L (3.5-5.1) 01/15/24 13:36 Chloride 106 mmol/L (98-107) 01/15/24 13:36 Carbon Dioxide 24 mmol/L (22-29) 01/15/24 13:36 Anion Gap 14.8 (5-19) 01/15/24 13:36 BUN 9 mg/dL (6-20) 01/15/24 13:36 Creatinine 0.6 mg/dL (0.5-0.9) 01/15/24 13:36 GFR Calculation 121.8 mL/min (90-130) 01/15/24 13:36 Glucose 90 mg/dL (65-115) 01/15/24 13:36 Calculated Osmolality 290 mOsm/kg (285-295) 01/15/24 13:36 Calcium 9.1 mg/dL (8.5-10.5) 01/15/24 13:36 Total Bilirubin 0.5 mg/dL (0.15-1.2) 01/15/24 13:36 AST 13 U/L (0-32) 01/15/24 13:36 ALT 7 U/L (0-33) 01/15/24 13:36 Alkaline Phosphatase 66 U/L (35-105) 01/15/24 13:36 Total Protein 7.5 g/dL (6.6-8.7) 01/15/24 13:36 Albumin 4.6 g/dL (3.5-5.2) 01/15/24 13:36 Globulin 2.9 g/dL (1.3-4.6) 01/15/24 13:36 HCG, Qual Negative (Negative) 01/15/24 12:15 Urine Color Yellow (Yellow) 01/15/24 12:15 Urine Appearance Clear (CLEAR) 01/15/24 12:15 Urine pH 5 (5-7) 01/15/24 12:15 Ur Specific [place] 1.010 (1.005-1.030) 01/15/24 12:15 Urine Protein Neg (Negative) 01/15/24 12:15 Urine Glucose (UA) Norm (Normal) 01/15/24 12:15 Urine Ketones Negative (Negative) 01/15/24 12:15 Urine Blood 3+ (Negative) H 01/15/24 12:15 Urine Nitrate Negative (Negative) 01/15/24 12:15 Urine Bilirubin Neg (Negative) 01/15/24 12:15 Urine Urobilinogen Norm mg/dL (Negative) 01/15/24 12:15 Ur Leukocyte Esterase Negative (Negative) 01/15/24 12:15 Urine RBC 0-4 /hpf (0-2) H 01/15/24 12:15 Urine WBC 0-4 /hpf (0-5) H 01/15/24 12:15 Ur Squamous Epith Cells 0-4 /hpf (0-5) H 01/15/24 12:15 Amorphous Sediment Not Reportable 01/15/24 12:15 Urine Bacteria 1+ /hpf (NONE) H 01/15/24 12:15 All radiology interpretation(s) finalized by discharge Discharge Plan Discharge Patient Disposition: Home Clinical Impression: Combined abdominal and pelvic pain Condition: Stable Prescriptions: No Action promethazine 12.5 mg tablet 12.5 mg PO Q6H PRN citalopram [Celexa] 10 mg tablet 10 mg PO DAILY Qty: 90 4RF Gummies 400 mcg-35 mg- 25 mg-5 mg tablet,chewable 1 tab PO DAILY acyclovir 400 mg tablet 400 mg PO TID Qty: 21 0RF acyclovir 400 mg tablet 400 mg PO BID Qty: 60 3RF Discharge Orders: Discharge ED (Routine); Ordered 01/15/24 Ordered By: Amari Keita Patient Instructions: Pelvic Pain in Women (ED), Abdominal Pain (ED) Activity Restrictions/Additional Instructions: Your evaluation in ER did not show any acute cause of your symptoms. Please follow-up with your family practice physician and/or [facility] PRESS TENDER for further evaluation and treatment. Stand Alone Forms: Work/School Release Coding Level of Care Code ED Director Construction Services for Maria Dolores Alarcon
[2024-01-15 13:24] LABS: Add Urine Microscopic? YES; Bilirubin Urine Neg (Negative); Blood Urine 3+ (Negative); Glucose Urine UA Norm (Normal); Ketones Urine Negative (Negative); Leukocyte Esterase Urine Negative (Negative); Nitrate Urine Negative (Negative); Protein Urine Neg (Negative); RBC Urine 0-4 /hpf (0-2); Squamous Epithelial Cell Urine 0-4 /hpf (0-5); Urine Appearance Clear (CLEAR); Urine Color Yellow (Yellow); Urobilinogen Urine Norm (Negative); WBC Urine 0-4 /hpf (0-5); pH Urine 5 (5-7)
[2024-01-15 13:25] LABS: Add Urine Culture? No; Bacteria Urine 1+ /hpf
--- NOTE | 2024-01-15 13:30 | XRR_ITS ---
PROCEDURE INFORMATION: Exam: XR Abdomen Exam date and time: 01/15/2024 1:57 PM Age: 23 years old Clinical indication: Abdominal pain; Generalized; Additional info: Abd/pelvic pain TECHNIQUE: Imaging protocol: Radiologic exam of the abdomen. Views: Frontal supine view of the abdomen. 1 View. COMPARISON: No relevant prior studies available. FINDINGS: Gastrointestinal tract: Normal. No bowel dilation. Normal stool amount. Bones/joints: Unremarkable. XR/XR abdomen 1V* [id number] IMPRESSION: No acute findings.
[2024-01-15 13:47] LABS: Basophils % 0.5 %; Eosinophils % 0.5 %; Hematocrit 38.9 % (36-47); Lymphocytes # 2.3 10^3/uL (0.8-4.8); Lymphocytes % 40.5 %; Mean Corpuscular HGB Conc 33.2 g/dL (30-55); Mean Corpuscular Hemoglobin 30.4 pg (27-33); Mean Corpuscular Volume 91.5 fl (85-98); Mean Platelet Volume 10.4 fL (7.4-10.4); Monocytes # 0.3 10^3/uL (0.2-0.9); Monocytes % 5.8 %; Neutrophils # 2.99 10^3/uL (1.8-7.7); Neutrophils % 52.5 %; Nucleated Red Blood Cells % 0 %; Platelet Count 226 10^3/cmm (157-399); Red Blood Count 4.25 10^6/uL (3.85-5.65); Red Cell Distribution Width 12.6 % (12.1-15.1)
[2024-01-15 13:59] VITALS: BP 124/84; O2SAT 93
[2024-01-15 14:04] LABS: Alanine Aminotransferase 7 U/L (0-33); Albumin Level 4.6 g/dL (3.5-5.2); Alkaline Phosphatase 66 U/L (35-105); Anion Gap 14.8 (5-19); Aspartate Amino Transferase 13 U/L (0-32); Blood Urea Nitrogen 9 mg/dL (6-20); Calcium 9.1 mg/dL (8.5-10.5); Carbon Dioxide 24 mmol/L (22-29); Chloride 106 mmol/L (98-107); Creatinine Clr Calc Pharmacy 131.7389; Globulin 2.9 g/dL (1.3-4.6); Glomerular Filtration Rate 121.8 mL/min (90-130); Glucose 90 mg/dL (65-115); Osmolality Calculated 290 mOsm/kg (285-295); Potassium 3.8 mmol/L (3.5-5.1); Sodium 141 mmol/L (136-145); Total Bilirubin 0.5 mg/dL (0.15-1.2); Total Protein 7.5 g/dL (6.6-8.7)
[2024-01-15 14:18] LABS: HCG Qualitative Urine. Negative (Negative)
[2024-01-15 14:42] VITALS: BP 109/76; PULSE 64; RESP 14; O2SAT 97
== END 2024-01-15 14:47 | disposition home or self-care (01) ==
PROVIDERS: Emergency Provider Emergency Medicine
DX: R10.2 Pelvic and perineal pain (principal); Z87.891 Personal history of nicotine dependence
CPT/HCPCS: 36415; 74018; 80053; 81001; 81025; 85025; 99284

== ENCOUNTER 2024-05-20 10:07 | Emergency (ER) | payer MEDICAID, SELFPAY ==
[2024-05-20 10:12] VITALS: BP 122/86; PULSE 101; RESP 18; TEMP 36.8; O2SAT 96; BMI 22.6
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
[2024-05-20] MEDS: ketorolac 60 mg/2 mL INJ IM (10:40)
[2024-05-20] MEDS: orphenadrine 30 mg/mL Inj 2 mL 60 MG IM (10:42)
[2024-05-20 10:53] VITALS: BP 115/75; PULSE 99; O2SAT 100
== END 2024-05-20 10:55 | disposition home or self-care (01) ==
PROVIDERS: Emergency Provider Emergency Medicine
DX: G89.29 Other chronic pain (principal); M54.2 Cervicalgia; Z87.891 Personal history of nicotine dependence
CPT/HCPCS: 96372; 99284; J1885; J2360

== ENCOUNTER 2024-05-29 08:17 | Emergency (ER) | payer MEDICAID, SELFPAY ==
--- NOTE | 2024-05-29 08:23 | XR_ITS ---
WS: [id number] Exam: XR chest 1V portable [id number] Date/Time of Exam: 05/29/2024 8:23 AM Reason For Exam: dyspnea/cough No priors. The lungs are fully expanded and clear. Normal cardiomediastinal silhouette. Bony elements are intact . XR/XR chest 1V portable [id number] IMPRESSION: 1. No acute cardiopulmonary finding.
[2024-05-29 08:32] VITALS: BP 113/67; PULSE 83; RESP 16; TEMP 36.7; O2SAT 99; BMI 22.3
[2024-05-29 08:55] VITALS: BP 113/67
[2024-05-29] MEDS: ketorolac 60 mg/2 mL INJ IM (09:13)
--- NOTE | 2024-05-29 09:13 | ED_ITS ---
HPI - Chest Pain General: Chief Complaint: Chest Pain Stated Complaint: chest pains through side and back cant breathe Time Seen by Provider: 05/29/24 08:21 Source: patient Mode of arrival: ambulatory Limitations: no limitations History of Present Illness: Patient is a 23-year-old female presents to ED today with a complaint of left- sided chest pain that began yesterday evening. She feels like pain is worse with deep inhalation, palpation, and movement. She feels like she cannot take a deep breath. She is not having any URI-like symptoms such as cough, chest congestion, nasal congestion/rhinorrhea. She is not running fevers. No recent injury or trauma to her chest. She is not having back pain. No abdominal pain. She arrives in no acute distress with stable vital signs. MD complaint: chest pain Onset (ago): day(s) (yesterday) Timing of current episode: constant Prior episodes: No Pain location: left chest and lateral Pain radiation: none Severity: moderate Relieving factors: nothing Exacerbating factors: inspiration, palpation and movement Associated symptoms: Reports no associated symptoms; Deny abdominal pain, dyspnea, fever(s), nausea, palpitations, syncope or vomiting Treatment prior to arrival: none Risk Factors: Coronary artery disease risk factors: none Thoracic aortic dissection risk factors: none Related Data Home Medications Medication Instructions Recorded Confirmed PNV 153-FA 400 mcg-om3 35 mg-dha 1 tab PO DAILY 05/05/22 08/04/22 25 mg-epa 5 mg-fish oil chew tablet ( Gummies) promethazine 12.5 mg tablet 12.5 mg PO Q6H PRN 08/04/22 08/04/22 Previous Rx's Medication Instructions Recorded citalopram 10 mg tablet (Celexa) 10 mg PO DAILY #90 tabs 08/04/22 acyclovir 400 mg tablet 400 mg PO BID #60 tabs 09/15/22 acyclovir 400 mg tablet 400 mg PO TID #21 tabs 09/15/22 baclofen 5 mg tablet 5 mg PO TID PRN muscle spasm #30 05/20/24 tabs ibuprofen 800 mg tablet 800 mg PO TID #30 tabs 05/20/24 tramadol 50 mg tablet 50 mg PO Q6H PRN pain #20 tabs 05/20/24 Allergies Allergy/AdvReac Type Severity Reaction Status Date / Time Sulfa (Sulfonamide Allergy ALGY-Hives Verified 05/20/24 10:21 Antibiotics) Review of Systems Const: Denies: fever(s), chills, body aches, fatigue or malaise ENMT: Denies: throat pain, odynophagia, nasal discharge, nasal congestion or sinus pain Card: Reports: chest pain; Denies: palpitations, irregular heart rhythm, edema, swelling of feet/ankles, lightheadedness, syncope, pre-syncope, dyspnea on exertion, orthopnea, leg pain with exertion or acrocyanosis Resp: Reports: pain on inspiration; Denies: dyspnea, productive cough, non-productive cough, wheezing, change in phlegm color, hemoptysis or chest congestion GI: Denies: abdominal pain, nausea, vomiting or diarrhea : Denies: flank pain, difficulty voiding, dysuria, urinary frequency, ur inary urgency or urinary hesitancy Musc: Denies: neck pain, back pain, extremity pain, extremity swelling, joint pain or joint swelling Skin/Breast: Denies: rash Neuro: Denies: headache(s) or dizziness PFSH ED PFSH: Medical History No pertinent past medical history neghx: htn,dm,thyroid,dvt/pe PCP: None Surgical History No pertinent past surgical history Family History Mother Breast cancer dx ge 20's-- still living; poss lumpectomy and radiation Diabetes Ovarian cancer dx age unknown-- uncertain if hysterectomy Grandmother Hypertension Maternal Grandfather Stroke Maternal Family/Other Breast cancer Maternal Great Grandmother--dx age unknown Denies family history of Colon cancer Heart disease Hyperlipidemia Family history of thyroid problem Uterine cancer Social History Smoking and tobacco/nicotine status: former use of tobacco/nicotine (quit with confirmation of -- 04/2022) Physical Exam Const: COMMON NORMALS: no acute distress, average body habitus, patient oriented x3, no limitations, healthy appearing, alert and well nourished GENERAL APPEARANCE: cooperative ORIENTATION/CONSCIOUSNESS: Yes awake, Yes oriented to person, Yes oriented to place and Yes oriented to time Chest: COMMONS NORMALS: normal inspection of the chest OTHER: pain is easily reproducible with palpation of her left anterior and lateral chest wall; no LUQ abdominal renzo/no CVA tenderness Resp: COMMON NORMALS: normal respiratory effort and clear to auscultation bilaterally AUSCULTATION: clear to auscultation bilaterally Cardio: COMMON NORMALS: regular rate and regular rhythm RATE: regular rate RHYTHM: regular rhythm GI: COMMON NORMALS: Normal to inspection, nondistended, normoactive bowel sounds present, Soft to palpation, non-tender, No hepatosplenomegaly present and no masses PALPATION: Yes Soft to palpation and Yes No hepatosplenomegaly present : COMMON NORMALS: Yes no CVA tenderness BLADDER/KIDNEY EXAM: Yes no CVA tenderness Back/Pelvis: COMMON NORMALS: no CVA tenderness, thoracic and lumbar spine normal to inspection, no thoracic nor lumbar tenderness, thoraco-lumbar ROM normal and straight leg raise negative bilaterally Extremity: GENERAL: Yes normal exam except as noted Neuro: COMMON NORMALS: patient oriented x3, moves all extremities, no focal motor deficits and no sensory deficits noted SENSORIUM/ORIENTATION: Yes alert, Yes oriented to person, Yes oriented to place and Yes oriented to time Skin: COMMON NORMALS: no rashes or lesions noted GENERAL SKIN EXAM: no rashes or lesions noted Course Vital Signs: Vital signs: Vital Signs Temperature 98.1 F 05/29/24 08:32 Pulse Rate 75 05/29/24 10:16 Respiratory Rate 16 05/29/24 08:32 Blood Pressure 121/71 05/29/24 10:16 Pulse Oximetry 98 05/29/24 10:16 Oxygen Delivery Me thod Room Air 05/29/24 08:32 MDM - Chest Pain Medical Decision Making Patient clinically appears in no acute distress. Her vital signs are stable. She has easily reproducible pain to her left anterior and lateral chest wall. Breath sounds are normal. Her CXR is unremarkable. She did gain relief with IM Toradol. Recommend NSAIDs at home as well as ice and heat. Follow-up with primary care in a week if symptoms do not seem to be improving. Return precautions discussed. Medical Records I reviewed the patient's medical records. Lab Data Radiology Impressions Chest X-Ray 05/29/24 08:23 IMPRESSION: 1. No acute cardiopulmonary finding. All radiology interpretation(s) finalized by discharge Discharge Plan Discharge Patient Disposition: Home Clinical Impression: Acute chest wall pain Condition: Stable Prescriptions: No Action promethazine 12.5 mg tablet 12.5 mg PO Q6H PRN citalopram [Celexa] 10 mg tablet 10 mg PO DAILY Qty: 90 4RF Gummies 400 mcg-35 mg- 25 mg-5 mg tablet,chewable 1 tab PO DAILY acyclovir 400 mg tablet 400 mg PO TID Qty: 21 0RF acyclovir 400 mg tablet 400 mg PO BID Qty: 60 3RF ibuprofen 800 mg tablet 800 mg PO TID Qty: 30 0RF baclofen 5 mg tablet 5 mg PO TID PRN (Reason: muscle spasm) Qty: 30 0RF tramadol 50 mg tablet 50 mg PO Q6H PRN (Reason: pain) Qty: 20 0RF Discharge Orders: Discharge ED (Routine); Ordered 05/29/24 Ordered By: Mallory Khan Patient Instructions: Chest Pain - Chest Wall, Costochondritis (DC), Chest Wall Pain (ED) Activity Restrictions/Additional Instructions: As we discussed, I will have case management set you up with a primary care provider for further evaluation. Continue anti-inflammatories every 6-8 hours as well as ice and heat. You may return to the emergency department for worsening pain, shortness of breath, significant difficulty breathing, fevers, passing out episodes, or any other concerns you may have. Coding Level of Care Code ED Change Management Specialist for [facility]
[2024-05-29 10:16] VITALS: BP 121/71; PULSE 75; O2SAT 98
--- NOTE | 2024-05-30 09:55 | DCPLANNER ---
Message sent to [facility]
== END 2024-05-29 10:18 | disposition home or self-care (01) ==
PROVIDERS: Emergency Provider Physician Assistant
DX: R07.89 Other chest pain (principal); Z87.891 Personal history of nicotine dependence
CPT/HCPCS: 71045; 96372; 99284; J1885

== ENCOUNTER 2024-08-30 14:25 | Emergency (ER) | payer MEDICAID, SELFPAY ==
[2024-08-30 15:10] VITALS: BP 95/58; PULSE 70; RESP 14; TEMP 36.7; O2SAT 99; BMI 21.8
[2024-08-30 15:22] LABS: Bilirubin Urine Negative (Negative); Blood Urine Negative (Negative); Glucose Urine UA Negative (Normal); Ketones Urine Negative (Negative); Leukocyte Esterase Urine 2+ (Negative); Nitrate Urine Negative (Negative); Protein Urine Negative (Negative); Specific Gravity, Urine 1.023 (1.005-1.030); Urine Appearance Cloudy (CLEAR); Urine Color Yellow (Yellow); Urobilinogen Urine 0.2 mg/dL (Negative)
[2024-08-30 15:25] LABS: Add Urine Microscopic? YES; Bacteria Urine 3+ /hpf; Hyaline Casts Urine 2.87 /lpf; RBC Urine 0-2 /hpf (0-2)
[2024-08-30 15:38] LABS: HCG, Serum Qual Negative (Negative)
[2024-08-30 15:40] LABS: Add Urine Culture? Yes
--- NOTE | 2024-08-30 16:23 | ED_ITS ---
HPI - Female Genitourinary General: Chief complaint: Urogenital-Female Stated complaint: burning in vaginal area Time Seen by Provider: 08/30/24 16:06 Source: patient Mode of arrival: ambulatory Limitations: no limitations History of Present Illness: 23-year-old female who states she has be en having dysuria over the last 5 to 6 days. States it is a burning pain. She denies any severe vaginal discharge or bleeding she states she is not currently sexually active she denies any fevers denies any vomiting or diarrhea. Associated symptoms: Deny abdominal pain, headache(s) or nausea Date of Last Menstrual Period: 08/08/24 Related Data Home Medications Medication Instructions Recorded Confirmed PNV 153-FA 400 mcg-om3 35 mg-dha 1 tab PO DAILY 05/05/22 08/04/22 25 mg-epa 5 mg-fish oil chew tablet ( Gummies) promethazine 12.5 mg tablet 12.5 mg PO Q6H PRN 08/04/22 08/04/22 Previous Rx's Medication Instructions Recorded citalopram 10 mg tablet (Celexa) 10 mg PO DAILY #90 tabs 08/04/22 acyclovir 400 mg tablet 400 mg PO BID #60 tabs 09/15/22 acyclovir 400 mg tablet 400 mg PO TID #21 tabs 09/15/22 baclofen 5 mg tablet 5 mg PO TID PRN muscle spasm #30 05/20/24 tabs ibuprofen 800 mg tablet 800 mg PO TID #30 tabs 05/20/24 tramadol 50 mg tablet 50 mg PO Q6H PRN pain #20 tabs 05/20/24 cephalexin 500 mg capsule 500 mg PO TID 7 days #21 caps 08/30/24 Allergies Allergy/AdvReac Type Severity Reaction Status Date / Time Sulfa (Sulfonamide Allergy ALGY-Hives Verified 08/30/24 15:13 Antibiotics) Review of Systems Const: Denies: fever(s), chills, body aches or change in appetite ENMT: Denies: throat pain or dental pain Card: Denies: chest pain Resp: Denies: dyspnea GI: Denies: abdominal pain, nausea, vomiting or diarrhea : Reports: dysuria Musc: Denies: neck pain or back pain Skin/Breast: Denies: rash Neuro: Denies: headache(s) PFSH ED PFSH: Medical History No pertinent past medical history neghx: htn,dm,thyroid,dvt/pe PCP: None Surgical History No pertinent past surgical history Family History Mother Breast cancer dx ge 20's-- still living; poss lumpectomy and radiation Diabetes Ovarian cancer dx age unknown-- uncertain if hysterectomy Grandmother Hypertension Maternal Grandfather Stroke Maternal Family/Other Breast cancer Maternal Great Grandmother--dx age unknown Denies family history of Colon cancer Heart disease Hyperlipidemia Family history of thyroid problem Uterine cancer Social History Smoking and tobacco/nicotine status: former use of tobacco/nicotine (quit with confirmation of -- 04/2022) Female Reproductive History: Date of last menstrual period: 08/08/24 Physical Exam Const: COMMON NORMALS: no acute distress, patient oriented x3 and healthy appearing HENMT: COMMON NORMALS: normocephalic and atraumatic HEAD & SCALP: normocephalic and atraumatic Neck/C-Spine: COMMON NORMALS: full ROM and supple Chest: COMMONS NORMALS: normal inspection of the chest Resp: COMMON NORMALS: normal respiratory effort Cardio: COMMON NORMALS: regular rate, regular rhythm and No murmurs present (Cardio) RATE: regular rate RHYTHM: regular rhythm GI: COMMON NORMALS: Normal to inspection, nondistended, normoactive bowel sounds present, Soft to palpation, non-tender and no masses PALPATION: Yes Soft to palpation Extremity: COMMON NORMALS: normal to inspection and full ROM Neuro: COMMON NORMALS: patient oriented x3, moves all extremities and no focal motor deficits Psych: COMMON NORMALS: mental status grossly normal, Normal thought process present and cooperative THOUGHT PROCESS: Normal thought process present Skin: COMMON NORMALS: no rashes or lesions noted and no wounds GENERAL SKIN EXAM: no rashes or lesions noted Course Vital Signs: Vital signs: Vital Signs Temperature 98.0 F 08/30/24 15:10 Pulse Rate 70 08/30/24 15:10 Respiratory Rate 14 08/30/24 15:10 Blood Pressure 95/58 08/30/24 15:10 Pulse Oximetry 99 08/30/24 15:10 Oxygen Delivery Me thod Room Air 08/30/24 15:10 MDM - Female Medical Decision Making Patient presents here with dysuria likely UTI abdominal exam here is benign is no signs of acute surgical abdomen no signs of PID will treat her with Keflex she is follow-up with PCP return if worsening. Medical Records I reviewed the patient's medical records. Lab Data I reviewed the patient's lab results. Laboratory Results HCG, Qual Negative (Negative) 08/30/24 14:45 Urine Color Yellow (Yellow) 08/30/24 14:30 Urine Appearance Cloudy (CLEAR) A 08/30/24 14:30 Urine pH 6.0 (5-7) 08/30/24 14:30 Ur Specific [place] 1.023 (1.005-1.030) 08/30/24 14:30 Urine Protein Negative (Negative) 08/30/24 14:30 Urine Glucose (UA) Negative (Normal) 08/30/24 14:30 Urine Ketones Negative (Negative) 08/30/24 14:30 Urine Blood Negative (Negative) 08/30/24 14:30 Urine Nitrate Negative (Negative) 08/30/24 14:30 Urine Bilirubin Negative (Negative) 08/30/24 14:30 Urine Urobilinogen 0.2 mg/dL (Negative) 08/30/24 14:30 Ur Leukocyte Esterase 2+ (Negative) A 08/30/24 14:30 Urine RBC 0-2 /hpf (0-2) 08/30/24 14:30 Urine WBC 11-20 /hpf (0-5) H 08/30/24 14:30 Ur Squamous Epith Cells 11-20 /hpf (0-5) H 08/30/24 14:30 Amorphous Sediment Not Reportable 08/30/24 14:30 Urine Bacteria 3+ /hpf (NONE) H 08/30/24 14:30 Hyaline Casts 2.87 /lpf 08/30/24 14:30 No radiology studies performed this visit Discharge Plan Discharge Patient Disposition: Home Clinical Impression: Urinary tract infection Condition: Stable Prescriptions: New cephalexin 500 mg capsule 500 mg PO TID 7 Days Qty: 21 0RF No Action promethazine 12.5 mg tablet 12.5 mg PO Q6H PRN citalopram [Celexa] 10 mg tablet 10 mg PO DAILY Qty: 90 4RF Gummies 400 mcg-35 mg- 25 mg-5 mg tablet,chewable 1 tab PO DAILY acyclovir 400 mg tablet 400 mg PO TID Qty: 21 0RF acyclovir 400 mg tablet 400 mg PO BID Qty: 60 3RF ibuprofen 800 mg tablet 800 mg PO TID Qty: 30 0RF baclofen 5 mg tablet 5 mg PO TID PRN (Reason: muscle spasm) Qty: 30 0RF tramadol 50 mg tablet 50 mg PO Q6H PRN (Reason: pain) Qty: 20 0RF Discharge Orders: Discharge ED (Routine); Ordered 08/30/24 Ordered By: Otis Medina Discharge Diet: Advance as tolerated Discharge Activity: Resume usual activity Patient Instructions: Urinary Tract Infection in Men (ED) Coding Level of Care Code ED Biological Technical Officer for [facility]
[2024-08-30] MEDS: cefTRIAXone 1,000 MG in water for injection-sterile 2.1 ML 2.1 MG IM (16:49)
[2024-08-30 16:50] VITALS: BP 98/63; PULSE 88; O2SAT 95
== END 2024-08-30 16:50 | disposition home or self-care (01) ==
PROVIDERS: Emergency Provider Emergency Medicine
DX: N39.0 Urinary tract infection, site not specified (principal); Z87.891 Personal history of nicotine dependence
CPT/HCPCS: 36415; 81001; 84703; 87086; 96372; 99284; J0696

== ENCOUNTER 2024-09-20 15:43 | Emergency (ER) | payer MEDICAID, SELFPAY ==
[2024-09-20 16:03] VITALS: PULSE 114; RESP 22; TEMP 36.7; O2SAT 100
[2024-09-20 16:29] LABS: Bilirubin Urine Negative (Negative); Blood Urine Negative (Negative); Glucose Urine UA Negative (Normal); Ketones Urine 2+ (Negative); Leukocyte Esterase Urine 1+ (Negative); Nitrate Urine Negative (Negative); Protein Urine 1+ (Negative); Urine Appearance Cloudy (CLEAR); Urine Color Yellow (Yellow)
[2024-09-20 16:31] LABS: Bacteria Urine 3+ /hpf; Hyaline Casts Urine 3.71 /lpf; WBC Urine 21-50 /hpf (0-5)
[2024-09-20 16:59] LABS: Specific Gravity, Urine 1.037 (1.005-1.030)
[2024-09-20 17:00] LABS: Add Urine Culture? Yes
--- NOTE | 2024-09-20 19:08 | CTR_ITS ---
PROCEDURE INFORMATION: Exam: CT Abdomen And Pelvis Without Contrast Exam date and time: 09/20/2024 8:43 PM Age: 23 years old Clinical indication: Other: Left flank pain TECHNIQUE: Imaging protocol: Computed tomography of the abdomen and pelvis without contrast. Radiation optimization: All CT scans at this facility use at least one of these dose optimization techniques: automated exposure control; mA and/or kV adjustment per patient size (includes targeted exams where dose is matched to clinical indication); or iterative reconstruction. COMPARISON: CR XR abdomen 1V* [id number] 01/15/2024 1:57 PM RADIATION DOSE METRICS: Total DLP (mGy-cm): 331.87 FINDINGS: Liver: Normal. No mass. Gallbladder and biliary ducts: Normal. No calcified stones. No ductal dilation. Pancreas: Normal. No ductal dilation. Spleen: Normal. No splenomegaly. Adrenal glands: Normal. No mass. Kidneys and ureters: Normal. No hydronephrosis. Stomach and bowel: Unremarkable. No obstruction. No mucosal thickening. Appendix: No evidence of appendicitis. Intraperitoneal space: Unremarkable. No free air. No significant fluid collection. Vasculature: Unremarkable. No abdominal aortic aneurysm. Lymph nodes: Unremarkable. No enlarged lymph nodes. Urinary bladder: Unremarkable as visualized. Reproductive: Unremarkable as visualized. Bones/joints: Unremarkable. No acute fracture. Soft tissues: Unremarkable. CT/CT abdomen pelvis wo con [id number] IMPRESSION: 1. No bowel obstruction or inflammatory process associated with the bowel. 2. No free air or significant free fluid in the abdomen or pelvis. 3. No evidence of appendicitis.
--- NOTE | 2024-09-20 19:12 | ED_ITS ---
HPI - Abdominal Pain 2 General: Chief Complaint: Abdominal Pain Stated Complaint: left side kidney pain Time Seen by Provider: 09/20/24 19:07 History of Present Illness: 23-year-old female who presents emergenc y room with left flank and left lower quadrant abdominal pain. This is been going on for about a week. She does not have any urinary symptoms but says that she had a urine infection about 5 years ago that felt like this and she ended up in the hospital for a long period of time. She has had some nausea and vomiting. Again no dysuria. No known fevers. She is a bit tachycardic on presentation. Dry oral mucosa. She is quite tearful and anxious. Related Data Home Medications ?Medication ?Instructions ?Recorded ?Confirmed PNV 153-FA 400 mcg-om3 35 mg-dha 1 tab PO DAILY 08/04/22 25 mg-epa 5 mg-fish oil chew tablet ( Gummies) promethazine 12.5 mg tablet 12.5 mg PO Q6H PRN 2 08/04/22 Previous Rx's ?Medication ?Instructions ?Recorded citalopram 10 mg tablet (Celexa) 10 mg PO DAILY #90 ta bs 08/04/22 acyclovir 400 mg tablet 400 mg PO BID #60 tabs 09/15 acyclovir 400 mg tablet 400 mg PO TID #21 tabs 09/15 baclofen 5 mg tablet 5 mg PO TID PRN muscle spasm #30 05/20/24 tabs ibuprofen 800 mg tablet 800 mg PO TID #30 tabs 05/20 tramadol 50 mg tablet 50 mg PO Q6H PRN pain #20 ta bs 05/20/24 cefdinir 300 mg capsule 300 mg PO BID 10 days #20 ca ps 09/20/24 diclofenac sodium 50 mg 50 mg PO BID PRN pain #14 ta bs 09/20/24 tablet,delayed release ondansetron 4 mg disintegrating 4 mg PO Q8H PRN nausea and 09/20/24 tablet vomiting #10 tabs Allergies Allergy/AdvReac Type Severity Reaction Status Date / Time Sulfa (Sulfonamide Allergy ALGY-Hives Verified 08/30/24 15:13 Antibiotics) Review of Systems 2 Narrative: Constitutional symptoms: Negative except as documented in HPI. Skin symptoms: Negative except as documented in HPI. Eye symptoms: Negative except as documented in HPI. ENMT symptoms: Negative except as documented in HPI. Respiratory symptoms: Negative except as documented in HPI. Cardiovascular symptoms: Negative except as documented in HPI. Gastrointestinal symptoms: Negative except as documented in HPI. Genitourinary symptoms: Negative except as documented in HPI. Musculoskeletal symptoms: Negative except as documented in HPI. Neurologic symptoms: Negative except as documented in HPI. Psychiatric symptoms: Negative except as documented in HPI. Endocrine symptoms: Negative except as documented in HPI. PFSH ED 2 PFSH: Medical History No pertinent past medical history neghx: htn,dm,thyroid,dvt/pe PCP: None Surgical History No pertinent past surgical history Family History Mother Breast cancer dx ge 20's-- still living; poss lumpectomy and radiation Diabetes Ovarian cancer dx age unknown-- uncertain if hysterectomy Grandmother Hypertension Maternal Grandfather Stroke Maternal Family/Other Breast cancer Maternal Great Grandmother--dx age unknown Denies family history of Colon cancer Heart disease Hyperlipidemia Family history of thyroid problem Uterine cancer Social History Smoking and tobacco/nicotine status: former use of tobacco/nicotine (quit with confirmation of -- 04/2022) Physical Exam 2 Narrative: EXAM NARRATIVE: General: Alert, no acute distress. Skin: Warm, dry. Head: Normocephalic, atraumatic. Neck: Supple, trachea midline. Eye: Extraocular movements are intact. Ears, nose, mouth and throat: Dry oral mucosa Cardiovascular: Regular, tachycardic, normal peripheral perfusion. Respiratory: Lungs are clear to auscultation, respirations are non-labored, breath sounds are equal, Symmetrical chest wall expansion. Gastrointestinal: Soft, Nontender, Non distended Musculoskeletal: Normal ROM, no deformity. Neurological: Alert and oriented, No focal neurological deficit observed. Psychiatric: Cooperative, anxious and tearful Course 2 Vital Signs: Vital signs: Vital Signs Temperature 98.0 F 09/20/24 16:03 Pulse Rate 108 H 09/20/24 21:22 Respiratory Rate 22 H 09/20/24 16:03 Blood Pressure 122/72 09/20/24 21:22 Pulse Oximetry 97 09/20/24 21:22 Oxygen Delivery Me thod Room Air 09/20/24 16:03 MDM - Abdominal Pain Medical Decision Making Medical decision making: Differential diagnosis including but not limited to and based on the above HPI, review of systems and physical exam: Ureterolithiasis. Urinary tract infection. Appendicitis. Cholecystis. Musculoskeletal / back pain. Pyelonephritis Orders placed to evaluate differential diagnosis based on the above differential, HPI and physical exam Lab Review: Laboratory results were reviewed and interpreted by myself the emergency room physician. No leukocytosis. No anemia. No renal failure. She does have a urinary tract infection. This would explain her symptoms likely. She did have some hematuria so a CT was ordered to rule out kidney stones. CT of the abdomen pelvis without contrast: No acute process. This was reviewed and interpreted by myself the emergency room physician. I also reviewed the radiology report. I reviewed the patient's medical record. Reexamination: Patient's pain is greatly improved with Toradol. Heart rate is improved. She says she feeling quite a bit better. She is received antibiotics and fluids. Assessment and plan: Urinary tract infection Dehydration Flank pain ? IV Rocephin, IV Toradol, IV Zofran and IV bolus. - Discharged home - Discussed plan with patient. Answered any questions. - Evaluation and treatment of this problem were appropriate in the emergency setting. Lab Data 09/20/24 19:44 09/20/24 19:44 Labs/Radiology: Radiology Impressions Abdomen/Pelvis CT 09/20/24 19:08 IMPRESSION: 1. No bowel obstruction or inflammatory process associated with the bowel. 2. No free air or significant free fluid in the abdomen or pelvis. 3. No evidence of appendicitis. Laboratory Results WBC 5.94 10^3/uL (3.29-11.43) 09/20/24 19:44 RBC 5.08 10^6/uL (3.85-5.65) 09/20/24 19:44 Hgb 14.80 g/dL (11.27-16.99) 09/20/24 19:44 Hct 43.9 % (36-47) 09/20/24 19:44 MCV 86.4 fl (85-98) 09/20/24 19:44 MCH 29.1 pg (27-33) 09/20/24 19:44 MCHC 33.7 g/dL (30-55) 09/20/24 19:44 RDW 12.1 % (12.1-15.1) 09/20/24 19:44 Plt Count 286 10^3/cmm (157-399) 09/20/24 19:44 MPV 9.8 fL (7.4-10.4) 09/20/24 19:44 Neut % (Auto) 66.6 % 09/20/24 19:44 Lymph % (Auto) 23.1 % 09/20/24 19:44 [place] % (Auto) 8.9 % 09/20/24 19:44 Eos % (Auto) 0.8 % 09/20/24 19:44 Baso % (Auto) 0.3 % 09/20/24 19:44 Neut # (Auto) 3.95 10^3/uL (1.8-7.7) 09/20/24 19:44 Lymph # (Auto) 1.4 10^3/uL (0.8-4.8) 09/20/24 19:44 [place] # (Auto) 0.5 10^3/uL (0.2-0.9) 09/20/24 19:44 Eos # (Auto) 0.1 10^3/uL (0.0-0.8) 09/20/24 19:44 Baso # (Auto) 0.0 10^3/uL (0.0-0.1) 09/20/24 19:44 Nucleated RBC % (auto) 0 % 09/20/24 19:44 Nucleated RBCs # 0.0 /100WBC 09/20/24 19:44 Sodium 139 mmol/L (136-145) 09/20/24 19:44 Potassium 3.2 mmol/L (3.5-5.1) L 09/20/24 19:44 Chloride 99 mmol/L (98-107) 09/20/24 19:44 Carbon Dioxide 25 mmol/L (22-29) 09/20/24 19:44 Anion Gap 18.2 (5-19) 09/20/24 19:44 BUN 10 mg/dL (6-20) 09/20/24 19:44 Creatinine 0.7 mg/dL (0.5-0.9) 09/20/24 19:44 GFR Calculation 102.0 mL/min (90-130) 09/20/24 19:44 Glucose 93 mg/dL (65-115) 09/20/24 19:44 Calculated Osmolality 287 mOsm/kg (285-295) 09/20/24 19:44 Lactic Acid 1.3 mmol/L (0.5-2.2) 09/20/24 19:44 Calcium 9.5 mg/dL (8.5-10.5) 09/20/24 19:44 Total Bilirubin 0.5 mg/dL (0.15-1.2) 09/20/24 19:44 AST 25 U/L (0-32) 09/20/24: ALT 16 U/L (0-33) 09/20/24 19: Alkaline Phosphatase 62 U/L (35-105) 09/20/24 19:44 Total Protein 8.7 g/dL (6.6-8.7) 09/20/24 19:44 Albumin 5.1 g/dL (3.5-5.2) 09/20/24 19:44 Globulin 3.6 g/dL (1.3-4.6) 09/20/24 19:44 Procalcitonin 0.06 ng/mL (0-0.5) 09/20/24 19:44 HCG, Qual Negative (Negative) 09/20/24 19:44 Urine Color Yellow (Yellow) 09/20/24 16:10 Urine Appearance Cloudy (CLEAR) A 09/20/24 16:10 Urine pH 6.0 (5-7) 09/20/24 16:10 Ur Specific [place] 1.037 (1.005-1.030) H 09/20/24 16:10 Urine Protein 1+ (Negative) A 09/20/24 16:10 Urine Glucose (UA) Negative (Normal) 09/20/24 16:10 Urine Ketones 2+ (Negative) H 09/20/24 16:10 Urine Blood Negative (Negative) 09/20/24 16:10 Urine Nitrate Negative (Negative) 09/20/24 16:10 Urine Bilirubin Negative (Negative) 09/20/24 16:10 Urine Urobilinogen 1.0 mg/dL (Negative) 09/20/24 16:10 Ur Leukocyte Esterase 1+ (Negative) A 09/20/24 16:10 Urine RBC 6-10 /hpf (0-2) 09/20/24 16:10 Urine WBC 21-50 /hpf (0-5) H 09/20/24 16:10 Ur Squamous Epith Cells 11-20 /hpf (0-5) H 09/20/24 16:10 Amorphous Sediment Not Reportable 09/20/24 16:10 Urine Bacteria 3+ /hpf (NONE) H 09/20/24 16:10 Hyaline Casts 3.71 /lpf 09/20/24 16:10 All radiology interpretation(s) finalized by discharge Discharge Plan Discharge Patient Disposition: Home Clinical Impression: Urinary tract infection, Dehydration Condition: Stable Prescriptions: New diclofenac sodium 50 mg tablet,delayed release (DR/EC) 50 mg PO BID PRN (Reason: pain) Qty: 14 0RF ondansetron 4 mg tablet,disintegrating 4 mg PO Q8H PRN (Reason: nausea and vomiting) Qty: 10 0RF cefdinir 300 mg capsule 300 mg PO BID 10 Days Qty: 20 0RF No Action promethazine 12.5 mg tablet 12.5 mg PO Q6H PRN citalopram [Celexa] 10 mg tablet 10 mg PO DAILY Qty: 90 4RF Gummies 400 mcg-35 mg- 25 mg-5 mg tablet,chewable 1 tab PO DAILY acyclovir 400 mg tablet 400 mg PO TID Qty: 21 0RF acyclovir 400 mg tablet 400 mg PO BID Qty: 60 3RF ibuprofen 800 mg tablet 800 mg PO TID Qty: 30 0RF baclofen 5 mg tablet 5 mg PO TID PRN (Reason: muscle spasm) Qty: 30 0RF tramadol 50 mg tablet 50 mg PO Q6H PRN (Reason: pain) Qty: 20 0RF Discharge Orders: Discharge ED (Routine); Ordered 09/20/24 Ordered By: Kaycee Samaniego Discharge Diet: Usual diet Discharge Activity: Increase activity as tolerated Patient Instructions: Urinary Tract Infection in Women (ED), Opioid Safety, Pain Management Activity Restrictions/Additional Instructions: Thank you for choosing [facility] for your healthcare needs today. Please realize this is an emergency room and that we are providing you with a medical screening exam and this may not be complete and all inclusive of all the testing and or work up that you may need to determine your ailment or severity of your illness. You have been screened and evaluated and felt safe for discharge. Health conditions do change or evolve sometimes and as such it is important that you follow up with your Primary Doctor to be re checked, 3-5 days is a general good time frame for follow up. You are always welcome to return to the ED for re assessment if your symptoms are worsening or you have new concerns Print Language: Kazakh Coding Level of Care Code ED Needle Punch Operator for Maria Dolores Alarcon
[2024-09-20] MEDS: sodium chloride 0.9% 1,000 ML 999 ML IV (19:54)
[2024-09-20 19:55] LABS: Basophils % 0.3 %; Eosinophils # 0.1 10^3/uL (0.0-0.8); Eosinophils % 0.8 %; Hematocrit 43.9 % (36-47); Lymphocytes # 1.4 10^3/uL (0.8-4.8); Lymphocytes % 23.1 %; Mean Corpuscular HGB Conc 33.7 g/dL (30-55); Mean Corpuscular Hemoglobin 29.1 pg (27-33); Mean Corpuscular Volume 86.4 fl (85-98); Mean Platelet Volume 9.8 fL (7.4-10.4); Monocytes # 0.5 10^3/uL (0.2-0.9); Monocytes % 8.9 %; Neutrophils # 3.95 10^3/uL (1.8-7.7); Neutrophils % 66.6 %; Nucleated Red Blood Cells % 0 %; Platelet Count 286 10^3/cmm (157-399); Red Blood Count 5.08 10^6/uL (3.85-5.65); Red Cell Distribution Width 12.1 % (12.1-15.1); White Blood Count 5.94 10^3/uL (3.29-11.43)
[2024-09-20] MEDS: cefTRIAXone 1,000 mg SDV 1000 MG IVP (19:55)
[2024-09-20] MEDS: ketorolac 30 mg/mL INJ IVP (19:55)
[2024-09-20 20:14] LABS: Alanine Aminotransferase 16 U/L (0-33); Albumin Level 5.1 g/dL (3.5-5.2); Alkaline Phosphatase 62 U/L (35-105); Anion Gap 18.2 (5-19); Aspartate Amino Transferase 25 U/L (0-32); Blood Urea Nitrogen 10 mg/dL (6-20); Calcium 9.5 mg/dL (8.5-10.5); Carbon Dioxide 25 mmol/L (22-29); Chloride 99 mmol/L (98-107); Creatinine Clr Calc Pharmacy 105.1774; Globulin 3.6 g/dL (1.3-4.6); Glucose 93 mg/dL (65-115); Lactic Sepsis W/Reflex 1.3 mmol/L (0.5-2.2); Osmolality Calculated 287 mOsm/kg (285-295); Potassium 3.2 mmol/L (3.5-5.1); Sodium 139 mmol/L (136-145); Total Bilirubin 0.5 mg/dL (0.15-1.2); Total Protein 8.7 g/dL (6.6-8.7)
[2024-09-20 20:18] LABS: HCG, Serum Qual Negative (Negative)
[2024-09-20 20:21] LABS: Procalcitonin 0.06 ng/mL (0-0.5)
[2024-09-20 21:22] VITALS: BP 122/72; PULSE 108; O2SAT 97
[2024-09-20 23:46] VITALS: BP 116/72; PULSE 95; O2SAT 98
== END 2024-09-21 00:34 | disposition home or self-care (01) ==
PROVIDERS: Family Medicine; Emergency Provider Emergency Medicine
DX: N39.0 Urinary tract infection, site not specified (principal); E86.0 Dehydration; Z87.891 Personal history of nicotine dependence
CPT/HCPCS: 74176; 80053; 81001; 83605; 84145; 84703; 85025; 87040; 87086; 96361; 96374; 96375; 99285; J0696; J1885; J7030

== ENCOUNTER 2025-03-17 21:27 | Emergency (ER) | payer OTHER, MEDICAID, SELFPAY ==
--- OUTSIDE RECORDS SUMMARY | 2021-03-16 07:02 | XMS_ITS | Continuity of Care Document ---
Author Organization [facility] Address [address] [place] [address] Care Team Providers Care Sole Assessor Name Role Phone Nurse, Nurse Unavailable Unavailable [...] NOTED; NONE PRSNT MED LIST DOCD IN [facility] DEPRESSION SCREENING TOBACCO USE, SMOKING, ASSESS TOBACCO NON-USER ADVNC CARE PLAN TLK DOCD SYST BP LT 130 MM HG DIAST BP < 80 MM HG Other Health REMOVE DRUG IMPLANT DEVICE OFFICE/OUTPATIENT VISIT, EST AMNT PAIN NOTED; PAIN PRSNT MED LIST DOCD IN [facility] DEPRESSION SCREENING TOBACCO USE, SMOKING, ASSESS PT [...] NOTED; NONE PRSNT MED LIST DOCD IN [facility] DEPRESSION SCREENING TOBACCO USE, SMOKING, ASSESS TOBACCO [...] Date Provider Providers Copied on Encounter [facility], [address] [place] [address], [phone] , [facility] No Information 1 Nurse Nurse. . OFFICE/OUTPA TIENT VISIT, [facility], [address] [place] [address], [phone] , [facility] [place] [facility] Nexplanon removal (chief complaint) Body mass index (BMI) 19.9 or less, adultDietary counseling and surveillanceEx ercise counselingEnco unter for surveillance of other contraceptives Irregular interval between menstrual bleeding 1 No Information OFFICE/OUTPA TIENT VISIT, [facility], [address] [place] [address], [phone] , [place] [facility] [place] [facility] Nausea (chief complaint) Body mass index (BMI) 19.9 or less, adultDietary counseling and surveillanceEx ercise counselingGERD w/o esophagitisNau sea 0 No Information OFFICE/OUTPA TIENT VISIT, [facility], [address] [place] [address], [phone] , [facility] [place] [facility] Contraception (chief complaint) No Information [address] [facility], [address] [place] [address], [phone] , [place] [facility] [place] [facility] Discuss test results (chief complaint) No Information [address] [facility], [address] [place] [address], [phone] , [facility] [place] [facility] No Information 0 No Information PREV VISIT, NEW, AGE 18-[address] [facility], [address] [place] [address], [phone] , [place] [facility] [place] [facility] PAP test (chief complaint) No Information 0 No Information Family History Family Member Type Diagnosis Age At Onset Mother Problem (finding) Diabetes mellitus Maternal Grandmother Problem (finding) Cancer, unknown Brother Problem (finding) Migraines Mother Problem (finding) Cancer, unknown P grandfather Problem (finding) Arthritis Mother Problem (finding) Migraines Paternal Grandmother Problem (finding) Migraines Immunizations Vaccine Date Status Comments HEP A [...] egistry Payers Payer name Insurance type Covered republican ID Authorkhanha olivia(s) Medicaid [facility] Members Only CI [id number] Social History Type Description Quantity Date Captured [...] Depression screening. Due on due Goal HPV (1st) due Goal HPV (2nd). Due on 1 due Goal Influenza vaccine. Due on due Goal Pap/HPV testing. Due on due Goal Tdap due Goal [...] Goal Td vaccine. Due on due Goal Pap/HPV testing. Due on due Goal Depression screening. Due on due Goal Lifestyle education regardin g diet completed Goal Tobacco cessation counseling completed Referral Ordered: Gastroenterology (related to GERD w/o esophagitis) ordered Referral Referred To: [facility] [address] [facility] [address] [place], [address] [phone] Ordered: Referrals: Gastroenterology. [facility] [place]. Evaluate and treat ordered Referral Ordered: Referrals: [...] information and acknowledge the privacy policies of [facility]? Patient states yes. I am currently in [...]
--- NOTE | 2025-03-17 21:30 | CTR_ITS ---
PROCEDURE INFORMATION: Exam: CT Head Without Contrast Exam date and time: 03/18/2025 1:28 AM Age: 24 years old Clinical indication: Injury or trauma; Fall; Blunt trauma (contusions or hematomas); Patient fell off of horse with headstrike. Abrasion to frontal. ; Additional info: Head inj fall off horse TECHNIQUE: Imaging protocol: Computed tomography of the head without contrast. Radiation optimization: All CT scans at this facility use at least one of these dose optimization techniques: automated exposure control; mA and/or kV adjustment per patient size (includes targeted exams where dose is matched to clinical indication); or iterative reconstruction. COMPARISON: CR XR cervical spine 3V* [id number] 02/26/2025 3:08 PM RADIATION DOSE METRICS: Total DLP (mGy-cm): 279 FINDINGS: Brain: Normal. No hemorrhage. Unremarkable white matter. No mass effect. Cerebral ventricles: No ventriculomegaly. Paranasal sinuses: Visualized sinuses are unremarkable. No fluid levels. Mastoid air cells: Visualized mastoid air cells are well aerated. Bones: Unremarkable. No acute fracture. Soft tissues: Unremarkable. Other findings: The motion artifact limits exam. CT/CT head wo con* [id number] IMPRESSION: No definite acute fracture or hemorrhage.
--- NOTE | 2025-03-17 21:30 | XRR_ITS ---
PROCEDURE INFORMATION: Exam: XR Right Wrist Exam date and time: 03/18/2025 1:27 AM Age: 24 years old Clinical indication: Injury or trauma; Blunt trauma (contusions or hematomas); Right; C/O RT wrist pain after falling off of horse. ; Additional info: R wrist inj TECHNIQUE: Imaging protocol: Radiologic exam of the right wrist. Views: 3 or more views. COMPARISON: No relevant prior studies available. FINDINGS: Bones/joints: Normal. Soft tissues: Normal. XR/XR wrist RT min 3V* [id number] IMPRESSION: No acute findings.
--- NOTE | 2025-03-17 21:30 | CTR_ITS ---
PROCEDURE INFORMATION: Exam: CT Cervical Spine Without Contrast Exam date and time: 03/18/2025 1:29 AM Age: 24 years old Clinical indication: Injury or trauma; Fall; Blunt trauma; Patient fell off of horse with headstrike. Abrasion to frontal. ; Additional info: Head inj fall off horse TECHNIQUE: Imaging protocol: Computed tomography of the cervical spine without contrast. Radiation optimization: All CT scans at this facility use at least one of these dose optimization techniques: automated exposure control; mA and/or kV adjustment per patient size (includes targeted exams where dose is matched to clinical indication); or iterative reconstruction. COMPARISON: CR XR cervical spine 3V* [id number] 02/26/2025 3:08 PM RADIATION DOSE METRICS: Total DLP (mGy-cm): 251.87 FINDINGS: Motion artifact limits exam. Bones: No acute fracture. Normal alignment. No significant disc bulge or herniation. No severe spinal canal stenosis. No significant neural foraminal narrowing. Lungs: Lung apices are normal. Soft tissues: Unremarkable. CT/CT cervical spin wo con* [id number] IMPRESSION: No acute cervical spine fracture.
[2025-03-17 21:50] VITALS: PULSE 96; RESP 16; O2SAT 98
--- NOTE | 2025-03-18 02:54 | W.ED.EXTPRO ---
HPI - Extremity Problem General: Chief complaint: Extremity Injury, Upper Stated complaint: RT wrist and possible concussion (fell off horse) Time Seen by Provider: 03/18/25 02:49 History of Present Illness: 24-year-old female who fell off of a horse last night. She complains of right wrist pain, and head and neck pain. She did hit her head on the ground after trying to catch herself with her right upper extremity. No significant swelling. She brings with her a volar wrist brace Velcro style from home which she has been wearing since her injury. Related Data Home Medications ?Medication ?Instructions ?Recorded ?Confirmed PNV 153-FA 400 mcg-om3 35 mg-dha 1 tab PO DAILY 05/05/22 08/04/22 25 mg-epa 5 mg-fish oil chew tablet ( Gummies) promethazine 12.5 mg tablet 12.5 mg PO Q6H PRN 08/04/22 08/04/22 Previous Rx's ?Medication ?Instructions ?Recorded citalopram 10 mg tablet (Celexa) 10 mg PO DAILY #90 tabs 08/04/22 acyclovir 400 mg tablet 400 mg PO BID #60 tabs 09/15/22 acyclovir 400 mg tablet 400 mg PO TID #21 tabs 09/15/22 baclofen 5 mg tablet 5 mg PO TID PRN muscle spasm #30 05/20/24 tabs ibuprofen 800 mg tablet 800 mg PO TID #30 tabs 05/20/24 diclofenac sodium 50 mg 50 mg PO BID PRN pain #14 tabs 09/20/24 tablet,delayed release ondansetron 4 mg disintegrating 4 mg PO Q8H PRN nausea and 09/20/24 tablet vomiting #10 tabs hydrocodone 5 mg-acetaminophen 325 1 tab PO Q8H PRN pain #7 tabs 03/18/25 mg tablet Allergies Allergy/AdvReac Type Severity Reaction Status Date / Time Sulfa (Sulfonamide Allergy ALGY-Hives Verified 08/30/24 15:13 Antibiotics) [facility] ED PFSH: Medical History (Updated 03/18/25 @ 02:56 by Brandon Keating DO) No pertinent past medical history neghx: htn,dm,thyroid,dvt/pe PCP: None Surgical History No pertinent past surgical history Family History Mother Breast cancer dx ge 20's-- still living; poss lumpectomy and radiation Diabetes Ovarian cancer dx age unknown-- uncertain if hysterectomy Grandmother Hypertension Maternal Grandfather Stroke Maternal Family/Other Breast cancer Maternal Great Grandmother--dx age unknown Denies family history of Colon cancer Heart disease Hyperlipidemia Family history of thyroid problem Uterine cancer Social History Smoking and tobacco/nicotine status: former use of tobacco/nicotine (quit with confirmation of -- 04/2022) Physical Exam Const: COMMON NORMALS: alert ORIENTATION/CONSCIOUSNESS: Yes oriented to person, Yes oriented to place and Yes oriented to time HENMT: COMMON NORMALS: normocephalic, EAC's normal and Normal external nose present HEAD & SCALP: normocephalic, abrasion (Left forehead) and contusion (Left forehead); no laceration FACE & SINUS: face symmetric NOSE: Normal external nose present and Normal nares present EXTERNAL AUDITORY CANAL: EAC's normal Eye: COMMON NORMALS: Equal, round and reactive pupils present and EOMs intact bilaterally PUPIL: Yes Equal, round and reactive pupils present Neck/C-Spine: OTHER: Mild cervical spine tenderness. Chest: CHEST: Yes Symmetrical chest wall rise Resp: COMMON NORMALS: normal respiratory effort and No retractions Extremity: NARRATIVE EXTREMITY EXAM: Examination of the right upper extremity reveals mild soft tissue swelling over the wrist. There is diffuse tenderness to palpation. No deformity. Pulses and sensation as well as capillary refill are normal distally. No hand deformity. Neuro: GABRIELA COMA SCALE: document GCS findings Gabriela coma scale eye opening: Spontaneous [place] coma scale verbal response: Orientated Gabriela coma scale motor response: Obey commands Gabriela coma scale total score: 15 SENSORIUM/ORIENTATION: Yes alert, Yes oriented to person, Yes oriented to place, Yes oriented to time and Yes Orientation impaired Course Vital Signs: Vital signs: Vital Signs Pulse Rate 79 03/18/25 03:31 Respiratory Rate 16 03/18/25 03:31 Blood Pressure 103/70 03/18/25 03:31 Pulse Oximetry 99 03/18/25 03:31 Oxygen Delivery Me thod Room Air 03/17/25 21:50 MDM - Extremity (Nontraumatic) Medical Decision Making CTs of the head and cervical spine are negative. Wrist x-ray shows no acute findings. She will stay in her Velcro wrist brace for the next week. If still having pain, primary care follow-up. Short course of pain medication. Ibuprofen as well. Ice. Return for problems. Lab Data Radiology Impressions Cervical Spine CT 03/17/25 21:30 IMPRESSION: No acute cervical spine fracture. Head CT 03/17/25 21:30 IMPRESSION: No definite acute fracture or hemorrhage. Wrist X-Ray 03/17/25 21:30 IMPRESSION: No acute findings. All radiology interpretation(s) finalized by discharge Discharge Plan Discharge Patient Disposition: Home Clinical Impression: Sprain and strain of wrist, Contusion of forehead Condition: Stable Prescriptions: New hydrocodone-acetaminophen 5-325 mg tablet 1 tab PO Q8H PRN (Reason: pain) Qty: 7 0RF Discontinued tramadol 50 mg tablet 50 mg PO Q6H PRN (Reason: pain) Qty: 20 0RF No Action promethazine 12.5 mg tablet 12.5 mg PO Q6H PRN citalopram [Celexa] 10 mg tablet 10 mg PO DAILY Qty: 90 4RF Gummies 400 mcg-35 mg- 25 mg-5 mg tablet,chewable 1 tab PO DAILY acyclovir 400 mg tablet 400 mg PO TID Qty: 21 0RF acyclovir 400 mg tablet 400 mg PO BID Qty: 60 3RF diclofenac sodium 50 mg tablet,delayed release (DR/EC) 50 mg PO BID PRN (Reason: pain) Qty: 14 0RF ondansetron 4 mg tablet,disintegrating 4 mg PO Q8H PRN (Reason: nausea and vomiting) Qty: 10 0RF ibuprofen 800 mg tablet 800 mg PO TID Qty: 30 0RF baclofen 5 mg tablet 5 mg PO TID PRN (Reason: muscle spasm) Qty: 30 0RF Discharge Orders: Discharge ED (Routine); Ordered 03/18/25 Ordered By: Brandon Keating Referrals: Yuki Casey, F[facility]NA[facility] KEEPER [Primary Care Provider, Unknown] - 4-7 days Patient Instructions: Wrist Sprain (ED), Facial Contusion (ED), Opioid Safety, Pain Management, Patient Portal & [place] Instructions Activity Restrictions/Additional Instructions: Stay in your wrist splint/brace until seen by your doctor. Call later this morning for a follow-up appointment in a week or so. Ice for pain and swelling. You may take pain medication for significant pain. You may take ibuprofen also. Return for problems in the meantime. 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
[2025-03-18 03:13] VITALS: RESP 17; O2SAT 98
[2025-03-18] MEDS: oxyCODONE-APAP 5-325 mg Tablet 2 TAB PO (03:13)
[2025-03-18 03:31] VITALS: BP 103/70; PULSE 79; RESP 16; O2SAT 99
== END 2025-03-18 03:18 | disposition home or self-care (01) ==
PROVIDERS: Emergency Provider Emergency Medicine; PCP Nurse Practitioner Family
DX: S66.911A Strain of unspecified muscle, fascia and tendon at wrist and hand level, right hand, initial encounter (principal); S00.83XA Contusion of other part of head, initial encounter; Z87.891 Personal history of nicotine dependence; V80.010A Animal-rider injured by fall from or being thrown from horse in noncollision accident, initial encounter
CPT/HCPCS: 70450; 72125; 73110; 99284; J9999; Q0162

== ENCOUNTER 2025-04-05 08:24 | Emergency (ER) | payer OTHER, MEDICAID, SELFPAY ==
--- OUTSIDE RECORDS SUMMARY | 2021-03-16 07:02 | XMS_ITS | Continuity of Care Document ---
Author Organization [facility] Address [address] [place] [address] Care Team Providers Care Rag Boiler Name Role Phone Nurse, Nurse Unavailable Unavailable Allergies, Adverse Reactions, Alerts Substance Reaction Status Criticality Sulfa (Sulfonamide Antibiotics) RashHives Active No Information Medications Medication Instructions Dosage Effective Dates (start - stop) Status Comments ibuprofen 800 mg tablet take 1 tablet by oral route 2 times every day with food for pain 800 MG - No Longer Active omeprazole 20 mg capsule,delayed release take 1 capsule by oral route every day 30 minutes to 1 hour before a meal x 8 weeks for GERD - No Longer Active Procedures Procedure Date AMNT PAIN NOTED; NONE PRSNT MED LIST DOCD IN [facility] DEPRESSION SCREENING TOBACCO USE, SMOKING, ASSESS TOBACCO NON-USER ADVNC CARE PLAN TLK DOCD SYST BP LT 130 MM HG DIAST BP < 80 MM HG Other Health REMOVE DRUG IMPLANT DEVICE OFFICE/OUTPATIENT VISIT, EST AMNT PAIN NOTED; PAIN PRSNT MED LIST DOCD IN [facility] DEPRESSION SCREENING TOBACCO USE, SMOKING, ASSESS PT SCRND [place] USE SYST BP LT 130 MM HG DIAST BP < 80 MM HG SBIRT SCREEN NEGATIVE OFFICE/OUTPATIENT VISIT, EST AMNT PAIN NOTED; NONE PRSNT MED LIST DOCD IN RD DEPRESSION SCREENING TOBACCO USE, SMOKING, ASSESS TOBACCO NON-USER PT [place] USE ADVNC CARE PLAN TLK DOCD FALL RISK ASSESSMENT DOC'D SYST BP LT 130 MM HG DIAST BP < 80 MM HG SBIRT SCREEN NEGATIVE INSERT DRUG IMPLANT DEVICE Etonogestrel IMPLANON/NEXPLANON Implant system OFFICE/OUTPATIENT VISIT, EST Expanded Visit Low Complex CO19 020 CYTOPATH, C/V, THIN LAYER HPV High Risk Types CHYLMD TRACH, DNA, AMP PROBE N.GONORRHOEAE, DNA, AMP PROB AMNT PAIN NOTED; NONE PRSNT MED LIST DOCD IN [facility] DEPRESSION SCREENING TOBACCO USE, SMOKING, ASSESS TOBACCO NON-USER PT [place]CR[place] USE ADVNC CARE PLAN TLK DOCD FALL RISK ASSESSMENT DOC'D SYST BP LT 130 MM HG DIAST BP < 80 MM HG SBIRT SCREEN NEGATIVE PURE TONE HEARING TEST, AIR VISUAL ACUITY SCREEN URINALYSIS NONAUTO W/O SCOPE URINE TEST PREV VISIT, NEW, AGE 18-39 PURE TONE HEARING TEST, AIR Advance Directives Directive Yes / No Effective Date File Name No Information Encounters Encounter Description Practice Location Reason(s) For Visit Diagnoses Date Provider Providers Copied on Encounter [facility], [address] [place] [address], [phone] , [facility] No Information 1 Nurse Nurse. . OFFICE/OUTPA TIENT VISIT, [facility] [place], [address] [place] [address], [phone] , [facility] [place] [facility] Nexplanon removal (chief complaint) Body mass index (BMI) 19.9 or less, adultDietary counseling and surveillanceEx ercise counselingEnco unter for surveillance of other contraceptives Irregular interval between menstrual bleeding 1 No Information OFFICE/OUTPA TIENT VISIT, [facility] [place] [facility] [place], [address] [place] [address], [phone] , [place] [facility] [place] [facility] Nausea (chief complaint) Body mass index (BMI) 19.9 or less, adultDietary counseling and surveillanceEx ercise counselingGERD w/o esophagitisNau sea 0 No Information OFFICE/OUTPA TIENT VISIT, [facility] [place] [facility] [place], [address] [place] [address], [phone] , [facility] [place] [facility] Contraception (chief complaint) No Information 0 No Information [facility], [address] [place] [address], [phone] , [place] [facility] [place] [facility] Discuss test results (chief complaint) No Information 0 No Information [facility], [address] [place] [address], [phone] , [facility] [place] [facility] No Information 0 No Information PREV VISIT, NEW, AGE 18-39 [facility], [address] [place] [address], [phone] , [facility] [place] [facility] PAP test (chief complaint) No Information 0 No Information Family History Family Member Type Diagnosis Age At Onset Mother Problem (finding) Cancer, unknown P grandfather Problem (finding) Arthritis Brother Problem (finding) Migraines Maternal Grandmother Problem (finding) Cancer, unknown Mother Problem (finding) Migraines Paternal Grandmother Problem (finding) Migraines Mother Problem (finding) Diabetes mellitus Immunizations Vaccine Date Status Comments HEP A administered Source: Other R egistry MCV4 administered Source: Other R egistry TDAP administered Source: Other R egistry FLU3Y+ PF administered Source: Other R egistry HPV4 administered Source: Other R egistry HEP A administered Source: Other R egistry INFLUENZA administered Source: Other R egistry DTAP administered Source: Other R egistry MMR administered Source: Other R egistry IPV administered Source: Other R egistry DTAP administered Source: Other R egistry IPV administered Source: Other R egistry HIB-HEPB administered Source: Other R egistry VZV administered Source: Other R egistry MMR administered Source: Other R egistry HIB UNK administered Source: Other R egistry HEP B administered Source: Other R egistry DTP administered Source: Other R egistry IPV administered Source: Other R egistry DTP administered Source: Other R egistry IPV administered Source: Other R egistry HIB UNK administered Source: Other R egistry HEP B administered Source: Other R egistry DTP administered Source: Other R egistry Payers Payer name Insurance type Covered libertarian ID Authorkhanha olivia(s) Medicaid [facility] Members Only CI [id number] Social History Type Description Quantity Date Captured Comments Alcohol Use Details Unknown Caffeine Use Details Unknown Tobacco Use Status No Information Smoking Status No Information Sex Female Sexual Orientation Straight or heterosexual Mar Gender Identity Female Chief Complaint And Reason For Visit No Information Reason For Referral Reason For Referral No Information Plan Of Treatment Date Type Action Status Goal Tdap due Goal Pap/HPV testing. Due on due Goal Influenza vaccine. Due on due Goal HPV (2nd). Due on 1 due Goal HPV (1st) due Goal Depression screening. Due on due Goal Pap/HPV testing. Due on due Goal Depression screening. Due on due Goal Dietary manageme nt education, guidance, and counseling completed Goal Pap/HPV testing. Due on due Goal Depression screening. Due on due Goal Lifestyle education regardin g diet completed Goal Pap/HPV testing. Due on due Goal Depression screening. Due on due Goal Lifestyle education regardin g diet completed Goal Pap/HPV testing. Due on due Goal Depression screening. Due on due Goal Tdap. Due on due Goal HPV (1st). Due on due Goal Td vaccine. Due on 20 due Goal Pap/HPV testing. Due on due Goal Depression screening. Due on due Goal Lifestyle education regardin g diet completed Goal Tobacco cessation counseling completed Referral Ordered: Gastroenterology (related to GERD w/o esophagitis) ordered Referral Referred To: [facility] [address] [facility] [address] [place], [address] [phone] Ordered: Referrals: Gastroenterology. [facility] [place]. Evaluate and treat ordered Referral Ordered: Referrals: Gastroenterology. Evaluate and treat ordered Patient Education A Healthy Lifestyle: Af ter Your Visit completed Patient Education Food as Fuel: After You r Visit completed Patient Education Learning About Co ntrol completed Patient Education Stopping Smoking: After Your Visit completed Patient Education Stopping Smoking: After Your Visit completed Patient Education Pap Test: After Your Vi sit completed History Of Present Illness Encounter Date Complaint History Of Prese nt Illness Nexplanon removal This is a 20 y /o female who presents to clinic for Nexplanon removal. Nexplanon placed 04/2020. Patient reports since placement she has been experiencing irregular periods and mood changes. Patient requesting removal. Patient schneider not want any other form of contraception. Patient is sexually active with once partner. Nausea Onset: 2 years a go. It occurs daily. The problem is constantly. Symptom is aggravated by heartburn and sauces. Associated symptoms include abdominal pain. Pertinent negatives include anxiety, blood in stool, chest pain, cough, decreased appetite, diarrhea, dizziness, flatulence and vomiting. Contraception This is a 19 y/o female who presents to clinic for contraception. She is sexually active. She reports one partner. LMP: 03/25/2020. Hcg urine negative. Patient desires Nexplanon. Patient denies CP, dizziness, SOB, palpitations, visual disturbances, bleeding disorder. Discuss test results Begin time: 919 End time: 934Do you consent to treatment for medical and/or behavioral health through telemedicine instead of face to face encounter in the office and the visit is medically necessary? Patient states yes. Do you understand and agree that this conversation may contain your personal health information and acknowledge the privacy policies of [facility]? Patient states yes. I am currently in the office in a private setting. My understanding you are at your residence. Is there anyone in the room with you? Per patient, alone in private setting. Patient verbalized understanding and is agreeable with plan. Patient would like to proceed with telehealth visit.Pap smear: HPV, high-risk PositiveNEGATIVE FOR INTRAEPITHELIAL LESION OR MALIGNANCY.Denies h/o abnormal pap smear PAP test Currently pregna nt: no. Patient is not contemplating . The patient states she uses none for control. Last LMP was 02/27/2020. Her menses is regular with normal flow with a frequency of every 28 days. Negative for: breast discharge, breast lump(s), breast pain and breast self exam. Menopausal symptoms negative for: hot flashes, insomnia, night sweats and vaginal dryness. There are no associated symptoms. There are no pertinent negatives. She does not take calcium. She does not take Vitamin D. She does not take multivitamins. She does not take Folic acid.The patient states her exercise level is moderate and frequency is 5 Days. The patient no longer uses tobacco. Tobacco cessation has been discussed. She has not been exposed to passive smoke. She has not been exposed to passive vaping. She does not drink alcohol. Functional Status Date Functional Assessmen t No Information Instructions Date Instruction Additional Infor pamela Dietary management e ducation, guidance, and counseling Related to Body mass index [BMI] 19.9 or less, adult Lifestyle education regarding di et Related to Body mass index [BMI] 19.9 or less, adult Lifestyle education regarding di et Related to Body mass index (BMI) 19.9 or less, adult Giving encouragement to exercise Related to Body mass index (BMI) 19.9 or less, adult Giving encouragement to exercise Related to Body mass index (BMI) 19.9 or less, adult Lifestyle education regarding di et Related to Body mass index (BMI) 19.9 or less, adult Assessments Type Assessment Date No Information Patient Care Teams Name Effective Dates (start - stop) Status Members No Information
[2025-04-05 08:40] VITALS: BP 105/72; PULSE 105; TEMP 37.2; O2SAT 100
[2025-04-05 08:55] LABS: Glucose Urine UA Negative (Normal); Nitrate Urine Negative (Negative); Specific Gravity, Urine 1.022 (1.005-1.030)
[2025-04-05 08:57] LABS: Hematocrit 40.3 % (36-47); Hemoglobin 12.90 g/dL (11.27-16.99); Mean Corpuscular HGB Conc 32.0 g/dL (30-55); Mean Corpuscular Hemoglobin 29.9 pg (27-33); Mean Corpuscular Volume 93.3 fl (85-98); Nucleated Red Blood Cells % 0 %; Platelet Count 234 10^3/cmm (157-399); Red Blood Count 4.32 10^6/uL (3.85-5.65); White Blood Count 8.25 10^3/uL (3.29-11.43)
[2025-04-05 09:00] LABS: Add Urine Microscopic? YES
--- NOTE | 2025-04-05 09:02 | W.ED.URI ---
HPI - URI/Sore Throat General: Chief Complaint: Upper Respiratory Infection Stated Complaint: fever / chills Time Seen by Provider: 04/05/25 08:28 History of Present Illness: 24-year-old female who presents to the emergency room with complaint of sore throat and fever. She has anosmia as well as some loose stools nonproductive cough. Her daughters were there is also been sick. Patient has a temp at home up to 102. Associated symptoms: Deny abdominal pain, chills, chest pain or fever(s) Related Data Home Medications ?Medication ?Instructions ?Recorded ?Confirmed PNV 153-FA 400 mcg-om3 35 mg-dha 1 tab PO DAILY 05/05/22 08/04/22 25 mg-epa 5 mg-fish oil chew tablet ( Gummies) promethazine 12.5 mg tablet 12.5 mg PO Q6H PRN 08/04/22 08/04/22 Previous Rx's ?Medication ?Instructions ?Recorded citalopram 10 mg tablet (Celexa) 10 mg PO DAILY #90 tabs 08/04/22 acyclovir 400 mg tablet 400 mg PO BID #60 tabs 09/15/22 acyclovir 400 mg tablet 400 mg PO TID #21 tabs 09/15/22 baclofen 5 mg tablet 5 mg PO TID PRN muscle spasm #30 05/20/24 tabs ibuprofen 800 mg tablet 800 mg PO TID #30 tabs 05/20/24 diclofenac sodium 50 mg 50 mg PO BID PRN pain #14 tabs 09/20/24 tablet,delayed release ondansetron 4 mg disintegrating 4 mg PO Q8H PRN nausea and 09/20/24 tablet vomiting #10 tabs hydrocodone 5 mg-acetaminophen 325 1 tab PO Q8H PRN pain #7 tabs 03/18/25 mg tablet Allergies Allergy/AdvReac Type Severity Reaction Status Date / Time Sulfa (Sulfonamide Allergy ALGY-Hives Verified 04/05/25 08:42 Antibiotics) Review of Systems Const: Denies: fever(s) or chills Card: Denies: chest pain Resp: Denies: dyspnea GI: Denies: abdominal pain : Denies: dysuria, urinary frequency or urinary urgency Musc: Denies: neck pain or back pain Skin/Breast: Denies: rash PFSH ED PFSH: Medical History No pertinent past medical history neghx: htn,dm,thyroid,dvt/pe PCP: None Surgical History No pertinent past surgical history Family History Mother Breast cancer dx ge 20's-- still living; poss lumpectomy and radiation Diabetes Ovarian cancer dx age unknown-- uncertain if hysterectomy Grandmother Hypertension Maternal Grandfather Stroke Maternal Family/Other Breast cancer Maternal Great Grandmother--dx age unknown Denies family history of Colon cancer Heart disease Hyperlipidemia Family history of thyroid problem Uterine cancer Social History Smoking and tobacco/nicotine status: former use of tobacco/nicotine (quit with confirmation of -- 04/2022) Physical Exam Const: GENERAL APPEARANCE: cooperative ORIENTATION/CONSCIOUSNESS: Yes awake, Yes oriented to person, Yes oriented to place and Yes oriented to time HENMT: COMMON NORMALS: normocephalic, atraumatic and hearing grossly normal bilaterally HEAD & SCALP: normocephalic and atraumatic OTHER: Posterior pharyngeal varghese moderate viral cobblestoning and erythema no exudates Resp: COMMON NORMALS: normal respiratory effort, No retractions, No use of accessory muscles and clear to auscultation bilaterally AUSCULTATION: clear to auscultation bilaterally Cardio: COMMON NORMALS: regular rate, regular rhythm and No murmurs present (Cardio) RATE: regular rate RHYTHM: regular rhythm GI: COMMON NORMALS: Soft to palpation and No hepatosplenomegaly present AUSCULTATION: Yes normoactive bowel sounds PALPATION: Yes Soft to palpation, No Tenderness to palpation present (GI), No Guarding due to palpation present (GI) and Yes No hepatosplenomegaly present Extremity: COMMON NORMALS: normal to inspection, capillary refill normal, no clubbing, cyanosis or edema, no calf tenderness and no pedal edema Neuro: SENSORIUM/ORIENTATION: Yes oriented to person, Yes oriented to place and Yes oriented to time Skin: COMMON NORMALS: no rashes or lesions noted GENERAL SKIN EXAM: no rashes or lesions noted Course Vital Signs: Vital signs: Vital Signs Temperature 99.0 F 04/05/25 08:40 Pulse Rate 105 H 04/05/25 08:40 Blood Pressure 105/72 04/05/25 08:40 Pulse Oximetry 100 04/05/25 08:40 Oxygen Delivery Me thod Room Air 04/05/25 08:40 MDM - URI/Sore Throat Medical Decision Making Exam indicates a viral infection. Will discharge patient home she wanted to confirm whether or not she had COVID. Did do a COVID swab we will contact her with results vital signs otherwise stable. Supportive cares Medical Records I reviewed the patient's medical records. Lab Data I reviewed the patient's lab results. 04/05/25 08:51 04/05/25 08:51 Laboratory Results WBC 8.25 10^3/uL (3.29-11.43) 04/05/25 08:51 RBC 4.32 10^6/uL (3.85-5.65) 04/05/25 08:51 Hgb 12.90 g/dL (11.27-16.99) 04/05/25 08:51 Hct 40.3 % (36-47) 04/05/25 08:51 MCV 93.3 fl (85-98) 04/05/25 08:51 MCH 29.9 pg (27-33) 04/05/25 08:51 MCHC 32.0 g/dL (30-55) 04/05/25 08:51 RDW 12.7 % (12.1-15.1) 04/05/25 08:51 Plt Count 234 10^3/cmm (157-399) 04/05/25 08:51 MPV 10.0 fL (7.4-10.4) 04/05/25 08:51 Neut % (Auto) 78.0 % 04/05/25 08:51 Lymph % (Auto) 13.0 % 04/05/25 08:51 [place] % (Auto) 7.5 % 04/05/25 08:51 Eos % (Auto) 1.2 % 04/05/25 08:51 Baso % (Auto) 0.2 % 04/05/25 08:51 Neut # (Auto) 6.43 10^3/uL (1.8-7.7) 04/05/25 08:51 Lymph # (Auto) 1.1 10^3/uL (0.8-4.8) 04/05/25 08:51 [place] # (Auto) 0.6 10^3/uL (0.2-0.9) 04/05/25 08:51 Eos # (Auto) 0.1 10^3/uL (0.0-0.8) 04/05/25 08:51 Baso # (Auto) 0.0 10^3/uL (0.0-0.1) 04/05/25 08:51 Nucleated RBC % (auto) 0 % 04/05/25 08:51 Nucleated RBCs # 0.0 /100WBC 04/05/25 08:51 Sodium 139 mmol/L (136-145) 04/05/25 08:51 Potassium 3.5 mmol/L (3.5-5.1) 04/05/25 08:51 Chloride 103 mmol/L (98-107) 04/05/25 08:51 Carbon Dioxide 24 mmol/L (22-29) 04/05/25 08:51 Anion Gap 15.5 (5-19) 04/05/25 08:51 BUN 7 mg/dL (6-20) 04/05/25 08:51 Creatinine 0.8 mg/dL (0.5-0.9) 04/05/25 08:51 GFR Calculation 86.7 mL/min (90-130) L 04/05/25 08:51 Glucose 104 mg/dL (65-115) 04/05/25 08:51 Calculated Osmolality 286 mOsm/kg (285-295) 04/05/25 08:51 Calcium 9.4 mg/dL (8.5-10.5) 04/05/25 08:51 Total Bilirubin 0.5 mg/dL (0.15-1.2) 04/05/25 08:51 AST 17 U/L (0-32) 04/05/25 08:51 ALT 16 U/L (0-33) 04/05/25 08:51 Alkaline Phosphatase 52 U/L (35-105) 04/05/25 08:51 Total Protein 8.1 g/dL (6.6-8.7) 04/05/25 08:51 Albumin 4.7 g/dL (3.5-5.2) 04/05/25 08:51 Globulin 3.4 g/dL (1.3-4.6) 04/05/25 08:51 HCG, Qual Negative (Negative) 04/05/25 08:51 Urine Color Yellow (Yellow) 04/05/25 08:45 Urine Appearance Clear (CLEAR) 04/05/25 08:45 Urine pH 5.5 (5-7) 04/05/25 08:45 Ur Specific [place] 1.022 (1.005-1.030) 04/05/25 08:45 Urine Protein Negative (Negative) 04/05/25 08:45 Urine Glucose (UA) Negative (Normal) 04/05/25 08:45 Urine Ketones Trace (Negative) 04/05/25 08:45 Urine Blood Negative (Negative) 04/05/25 08:45 Urine Nitrate Negative (Negative) 04/05/25 08:45 Urine Bilirubin Negative (Negative) 04/05/25 08:45 Urine Urobilinogen 1.0 mg/dL (Negative) 04/05/25 08:45 Ur Leukocyte Esterase Trace (Negative) A 04/05/25 08:45 Urine RBC 0-2 /hpf (0-2) 04/05/25 08:45 Urine WBC 0-5 /hpf (0-5) 04/05/25 08:45 Ur Squamous Epith Cells 6-10 /hpf (0-5) 04/05/25 08:45 Amorphous Sediment Not Reportable 04/05/25 08:45 Urine Bacteria None seen /hpf (NONE) 04/05/25 08:45 Hyaline Casts 0.81 /lpf 04/05/25 08:45 No radiology studies performed this visit Discharge Plan Discharge Patient Disposition: Home Clinical Impression: Viral infection Condition: Stable Prescriptions: No Action promethazine 12.5 mg tablet 12.5 mg PO Q6H PRN citalopram [Celexa] 10 mg tablet 10 mg PO DAILY Qty: 90 4RF Gummies 400 mcg-35 mg- 25 mg-5 mg tablet,chewable 1 tab PO DAILY acyclovir 400 mg tablet 400 mg PO TID Qty: 21 0RF acyclovir 400 mg tablet 400 mg PO BID Qty: 60 3RF diclofenac sodium 50 mg tablet,delayed release (DR/EC) 50 mg PO BID PRN (Reason: pain) Qty: 14 0RF ondansetron 4 mg tablet,disintegrating 4 mg PO Q8H PRN (Reason: nausea and vomiting) Qty: 10 0RF ibuprofen 800 mg tablet 800 mg PO TID Qty: 30 0RF baclofen 5 mg tablet 5 mg PO TID PRN (Reason: muscle spasm) Qty: 30 0RF hydrocodone-acetaminophen 5-325 mg tablet 1 tab PO Q8H PRN (Reason: pain) Qty: 7 0RF Discharge Orders: Discharge ED (Routine); Ordered 04/05/25 Ordered By: Navid Huang Referrals: Yuki Casey FNP [Primary Care Provider, Unknown] Discharge Diet: Usual diet Discharge Activity: Resume usual activity Patient Instructions: Opioid Safety, Pain Management, Patient Portal & [facility] Instructions Activity Restrictions/Additional Instructions: Thank you for choosing [facility] for your healthcare needs today. It is very important that you follow up as instructed or that you return to the Emergency Department should you have concerns or if your condition changes or worsens in any way. Emergency department visits are focused on emergent conditions, in some cases you may require further evaluation on an outpatient basis. You are seen emergency room with complaint of fever sore throat slight cough. Your presentation constellation of symptoms are consistent with a viral upper respiratory infection likely COVID. You were swabbed for COVID we will contact you with results once they are completed. Your other vital signs were normal. At this point there is no interventions or treatments that would just be supportive cares increase fluid intake Tylenol and ibuprofen as needed. (Please note that included in your discharge packet is information concerning opioid safety and pain management. This information is given to all patients were discharged from the ER regardless of their discharge diagnosis or the medicines they usually take or are prescribed.) Stand Alone Forms: Work/School Release Print Language: Surinamese Coding Level of Care Code ED Palaeontologist for Maria Dolores Alarcon
[2025-04-05 09:05] LABS: HCG, Serum Qual Negative (Negative)
[2025-04-05 09:12] LABS: Alanine Aminotransferase 16 U/L (0-33); Albumin Level 4.7 g/dL (3.5-5.2); Alkaline Phosphatase 52 U/L (35-105); Anion Gap 15.5 (5-19); Aspartate Amino Transferase 17 U/L (0-32); Blood Urea Nitrogen 7 mg/dL (6-20); Calcium 9.4 mg/dL (8.5-10.5); Carbon Dioxide 24 mmol/L (22-29); Chloride 103 mmol/L (98-107); Creatinine Clr Calc Pharmacy 90.3142; Globulin 3.4 g/dL (1.3-4.6); Glucose 104 mg/dL (65-115); Osmolality Calculated 286 mOsm/kg (285-295); Potassium 3.5 mmol/L (3.5-5.1); Sodium 139 mmol/L (136-145); Total Protein 8.1 g/dL (6.6-8.7)
[2025-04-05 09:55] VITALS: BP 99/63; PULSE 78; O2SAT 99
[2025-04-05 10:04] LABS: Respiratory Syncytial Virus Ce NEGATIVE (Negative); SARS-CoV-2 PCR NEGATIVE (Negative)
== END 2025-04-05 09:56 | disposition home or self-care (01) ==
PROVIDERS: Emergency Provider Family Medicine; PCP Nurse Practitioner Family
DX: B34.9 Viral infection, unspecified (principal); Z87.891 Personal history of nicotine dependence; Z11.52 Encounter for screening for COVID-19
CPT/HCPCS: 36415; 80053; 81001; 84703; 85025; 87637; 99283

== ENCOUNTER 2025-04-09 16:16 | Emergency (ER) | payer OTHER, MEDICAID, SELFPAY ==
--- OUTSIDE RECORDS SUMMARY | 2021-03-16 07:02 | XMS_ITS | Continuity of Care Document ---
Author Organization [facility] Address [address] [place] [address] Care Team Providers Care Staffing Program Manager Name Role Phone Nurse, Nurse Unavailable Unavailable [...] NOTED; NONE PRSNT MED LIST DOCD IN [facility] DEPRESSION SCREENING TOBACCO USE, SMOKING, ASSESS TOBACCO NON-USER ADVNC CARE PLAN TLK DOCD SYST BP LT 130 MM HG DIAST BP < 80 MM HG Other Health REMOVE DRUG IMPLANT DEVICE OFFICE/OUTPATIENT VISIT, EST AMNT PAIN NOTED; PAIN PRSNT MED LIST DOCD IN [facility] DEPRESSION SCREENING TOBACCO USE, SMOKING, ASSESS PT [...] NOTED; NONE PRSNT MED LIST DOCD IN [facility] DEPRESSION SCREENING TOBACCO USE, SMOKING, ASSESS TOBACCO [...] Diagnoses Date Provider Providers Copied on Encounter [facility], [address] [place] [address], [phone] , [facility] No Information 1 Nurse Nurse. . OFFICE/OUTPA TIENT VISIT, [facility], [address] [place] [address], [phone] , [facility] [place] [facility] Nexplanon removal (chief complaint) Body mass index (BMI) 19.9 or less, adultDietary counseling and surveillanceEx ercise counselingEnco unter for surveillance of other contraceptives Irregular interval between menstrual bleeding 1 No Information OFFICE/OUTPA TIENT VISIT, [facility], [address] [place] [address], [phone] , [place] [facility] [place] [facility] Nausea (chief complaint) Body mass index (BMI) 19.9 or less, adultDietary counseling and surveillanceEx ercise counselingGERD w/o esophagitisNau sea 0 No Information OFFICE/OUTPA TIENT VISIT, [facility], [address] [place] [address], [phone] , [facility] [place] [facility] Contraception (chief complaint) No Information 0 No Information [facility], [address] [place] [address], [phone] , [place] [facility] [place] [facility] Discuss test results (chief complaint) No Information 0 No Information [facility], [address] [place] [address], [phone] , [facility] [place] [facility] No Information 0 No Information PREV VISIT, NEW, AGE 18-39 [facility], [address] [place] [address], [phone] , [place] [facility] [place] [facility] PAP test (chief complaint) No Information 0 No Information Family History Family Member Type Diagnosis Age At Onset Mother Problem (finding) Diabetes mellitus Paternal Grandmother Problem (finding) Migraines Mother Problem (finding) Migraines Maternal Grandmother Problem (finding) Cancer, unknown Brother Problem (finding) Migraines P grandfather Problem (finding) Arthritis Mother Problem (finding) Cancer, unknown Immunizations Vaccine Date Status Comments HEP A [...] egistry Payers Payer name Insurance type Covered green party ID Authorveto baker(s) Medicaid [facility] Members Only CI [id number] Social History Type Description Quantity Date Captured Comments Alcohol Use Details Unknown Caffeine Use Details Unknown Tobacco Use Status No Information Smoking Status No Information Sex Female Sexual Orientation Straight or heterosexual Mar Gender Identity Female Chief Complaint And Reason For Visit No Information Reason For Referral Reason For Referral No Information Plan Of Treatment Date Type Action Status Goal Depression screening. Due on due Goal Pap/HPV testing. Due on due Goal HPV (2nd). Due on 1 due Goal HPV (1st) due Goal Influenza vaccine. Due on due Goal Tdap due Goal Pap/HPV testing. Due on due Goal Depression screening. Due on due Goal Dietary manageme nt education, guidance, and counseling completed Goal Depression screening. Due on due Goal Pap/HPV testing. Due on due Goal Lifestyle education regardin g diet completed Goal Pap/HPV testing. Due on due Goal Depression screening. Due on due Goal Lifestyle education regardin g diet completed Goal Depression screening. Due on due Goal HPV (1st). Due on due Goal Pap/HPV testing. Due on due Goal Tdap. Due on due Goal Td vaccine. Due on due Goal Depression screening. Due on due Goal Pap/HPV testing. Due on due Goal Lifestyle education regardin g diet completed Goal Tobacco cessation counseling completed Referral Ordered: Gastroenterology (related to GERD w/o esophagitis) ordered Referral Referred To: [facility] [address] [facility] [address] [place], [address] [phone] Ordered: Referrals: Gastroenterology. [facility] [place]. Evaluate and treat ordered Referral Ordered: Referrals: [...] information and acknowledge the privacy policies of [facility]? Patient states yes. I am currently [...] mass index [BMI] 19.9 or less, adult Giving encouragement to [...]
[2025-04-09 16:19] VITALS: BP 99/70; PULSE 93; TEMP 36.8; O2SAT 100
[2025-04-09 19:20] VITALS: BP 96/66; PULSE 72; TEMP 36.6; O2SAT 100
--- NOTE | 2025-04-09 19:57 | W.ED.FEVER ---
HPI - Fever General: Chief Complaint: Fever Stated Complaint: fever (5xdays) Time Seen by Provider: 04/09/25 19:33 History of Present Illness: Patient states she was here on Tuesday for fever, not feeling well. She complains of fever, nonproductive cough, and clear production of cough, without shortness of breath. She has general body aches, and temperature 100-101 ?F. She has been alternating Tylenol, and ibuprofen. On Tuesday, she had declined the COVID test, however her symptoms were consistent with this and she was diagnosed with viral illness. She returns to the ED with the ongoing fever. Associated symptoms: Reports chills; Deny abdominal pain, flank pain, chest pain, headache(s), nausea or vomiting Related Data Home Medications ?Medication ?Instructions ?Recorded ?Confirmed PNV 153-FA 400 mcg-om3 35 mg-dha 1 tab PO DAILY 05/05/22 08/04/22 25 mg-epa 5 mg-fish oil chew tablet ( Gummies) promethazine 12.5 mg tablet 12.5 mg PO Q6H PRN 08/04/22 08/04/22 Previous Rx's ?Medication ?Instructions ?Recorded citalopram 10 mg tablet (Celexa) 10 mg PO DAILY #90 tabs 08/04/22 acyclovir 400 mg tablet 400 mg PO BID #60 tabs 09/15/22 acyclovir 400 mg tablet 400 mg PO TID #21 tabs 09/15/22 baclofen 5 mg tablet 5 mg PO TID PRN muscle spasm #30 05/20/24 tabs ibuprofen 800 mg tablet 800 mg PO TID #30 tabs 05/20/24 diclofenac sodium 50 mg 50 mg PO BID PRN pain #14 tabs 09/20/24 tablet,delayed release ondansetron 4 mg disintegrating 4 mg PO Q8H PRN nausea and 09/20/24 tablet vomiting #10 tabs hydrocodone 5 mg-acetaminophen 325 1 tab PO Q8H PRN pain #7 tabs 03/18/25 mg tablet Allergies Allergy/AdvReac Type Severity Reaction Status Date / Time Sulfa (Sulfonamide Allergy ALGY-Hives Verified 04/09/25 16:24 Antibiotics) Review of Systems General: Reports: 10 or more systems reviewed and unremarkable except in HPI and below Const: Reports: fever(s), chills and body aches Eyes: Denies: change in vision or blurry vision ENMT: Denies: throat pain or uvular edema Card: Denies: chest pain or palpitations Resp: Reports: dyspnea, productive cough and non-productive cough GI: Denies: abdominal pain, nausea or vomiting : Denies: flank pain, difficulty voiding or urinary frequency Musc: Denies: neck pain or back pain Skin/Breast: Denies: rash or pruritus Neuro: Denies: headache(s), numbness in extremities or weakness in extremities Psych: Denies: anxiety or depression Endo: Denies: polyuria or polydipsia [place]/Lymph: Denies: easy bruising or easy bleeding All/Imm: Denies: urticaria or throat swelling PFSH ED PFSH: Medical History (Updated 04/09/25 @ 20:01 by ANTONIETTA Kellogg) No pertinent past medical history neghx: htn,dm,thyroid,dvt/pe PCP: None Surgical History No pertinent past surgical history Family History Mother Breast cancer dx ge 20's-- still living; poss lumpectomy and radiation Diabetes Ovarian cancer dx age unknown-- uncertain if hysterectomy Grandmother Hypertension Maternal Grandfather Stroke Maternal Family/Other Breast cancer Maternal Great Grandmother--dx age unknown Denies family history of Colon cancer Heart disease Hyperlipidemia Family history of thyroid problem Uterine cancer Social History Smoking and tobacco/nicotine status: former use of tobacco/nicotine (quit with confirmation of -- 04/2022) Physical Exam Const: COMMON NORMALS: no acute distress, average body habitus, patient oriented x3 and no limitations HENMT: THROAT: no uvular edema Neck/C-Spine: COMMON NORMALS: full ROM, no lymphadenopathy, supple and Thyroid normal GENERAL: Yes normal visual inspection THYROID: Thyroid normal CERVICAL SPINE: Yes cervical ROM normal Lymph: LYMPHATIC: no lymphadenopathy noted Chest: COMMONS NORMALS: normal inspection of the chest and normal palpation of entire chest wall Resp: COMMON NORMALS: normal respiratory effort, No retractions and clear to auscultation bilaterally AUSCULTATION: clear to auscultation bilaterally Cardio: COMMON NORMALS: regular rate and regular rhythm RATE: regular rate RHYTHM: regular rhythm GI: COMMON NORMALS: Normal to inspection, nondistended, normoactive bowel sounds present, Soft to palpation and non-tender PALPATION: Yes Soft to palpation : COMMON NORMALS: Yes no CVA tenderness BLADDER/KIDNEY EXAM: Yes no CVA tenderness Back/Pelvis: COMMON NORMALS: no CVA tenderness Extremity: COMMON NORMALS: normal to inspection, full ROM and capillary refill normal Neuro: FABIENNE COMA SCALE: document GCS findings COMMON NORMALS: patient oriented x3 and CN's II-XII intact bilaterally Psych: COMMON NORMALS: mental status grossly normal and Normal thought process present THOUGHT PROCESS: Normal thought process present Course Vital Signs: Vital signs: Vital Signs Temperature 98.0 F 04/09/25 20:12 Pulse Rate 77 04/09/25 20:12 Blood Pressure 104/69 04/09/25 20:12 Pulse Oximetry 100 04/09/25 20:12 Oxygen Delivery Me thod Room Air 04/09/25 19:20 MDM - Fever Medical Decision Making Patient is a 24-year-old female with diagnosis of viral illness due to decline in taking COVID swab for verification. This occurred 4 days ago on evaluation in the emergency room. All of her symptoms are consistent with viral illness/COVID-19. Discussed with patient this is a communicable, transmitted disease that is still causing mortality in our children in elderly, and to stay in, not come to the ER unless there is an emergency, and follow-up with her primary care. She will extend her off work time until she is fever free, or greater than 6 days. Lab Data I reviewed the patient's lab results. Laboratory Results Urine Color Yellow (Yellow) 04/09/25 19:43 Urine Appearance Clear (CLEAR) 04/09/25 19:43 Urine pH 6.0 (5-7) 04/09/25 19:43 Ur Specific [place] 1.020 (1.005-1.030) 04/09/25 19:43 Urine Protein Negative (Negative) 04/09/25 19:43 Urine Glucose (UA) Negative (Normal) 04/09/25 19:43 Urine Ketones Negative (Negative) 04/09/25 19:43 Urine Blood Negative (Negative) 04/09/25 19:43 Urine Nitrate Negative (Negative) 04/09/25 19:43 Urine Bilirubin Negative (Negative) 04/09/25 19:43 Urine Urobilinogen 1.0 mg/dL (Negative) 04/09/25 19:43 Ur Leukocyte Esterase Negative (Negative) 04/09/25 19:43 Urine RBC 0-2 /hpf (0-2) 04/09/25 19:43 Urine WBC 0-5 /hpf (0-5) 04/09/25 19:43 Ur Squamous Epith Cells 11-20 /hpf (0-5) H 04/09/25 19:43 Amorphous Sediment Not Reportable 04/09/25 19:43 Urine Bacteria 1+ /hpf (NONE) H 04/09/25 19:43 Hyaline Casts 2.46 /lpf 04/09/25 19:43 No radiology studies performed this visit Discharge Plan Discharge Patient Disposition: Home Clinical Impression: Viral infection Condition: Stable Prescriptions: No Action promethazine 12.5 mg tablet 12.5 mg PO Q6H PRN citalopram [Celexa] 10 mg tablet 10 mg PO DAILY Qty: 90 4RF Gummies 400 mcg-35 mg- 25 mg-5 mg tablet,chewable 1 tab PO DAILY acyclovir 400 mg tablet 400 mg PO TID Qty: 21 0RF acyclovir 400 mg tablet 400 mg PO BID Qty: 60 3RF diclofenac sodium 50 mg tablet,delayed release (DR/EC) 50 mg PO BID PRN (Reason: pain) Qty: 14 0RF ondansetron 4 mg tablet,disintegrating 4 mg PO Q8H PRN (Reason: nausea and vomiting) Qty: 10 0RF ibuprofen 800 mg tablet 800 mg PO TID Qty: 30 0RF baclofen 5 mg tablet 5 mg PO TID PRN (Reason: muscle spasm) Qty: 30 0RF hydrocodone-acetaminophen 5-325 mg tablet 1 tab PO Q8H PRN (Reason: pain) Qty: 7 0RF Discharge Orders: Discharge ED (Routine); Ordered 04/09/25 Ordered By: Cinda Becker Referrals: Yuki Casey, JOB ANALYST [Primary Care Provider, Unknown] Discharge Diet: Usual diet Discharge Activity: Limit activity as instructed Patient Instructions: COVID-19: Slow the Coronavirus Spread (ED), Patient Portal & [facility] Instructions Activity Restrictions/Additional Instructions: We are unable to confirm that you had COVID since you did not want the swab the last time you are in, however this is most likely COVID and we are calling in a viral illness. Your exam today showed you had clear lungs, no additional findings were of concern. Return to work on , in 2 more days. As far as her fever, alternate your Tylenol, and ibuprofen. Stay isolated for additional 2 days or if you have fever. This is a communicable disease that still kills are elderly and children Stand Alone Forms: Work/School Release Print Language: Bengali Coding Level of Care Code ED Board Operator for Maria Dolores Alarcon
[2025-04-09 19:59] LABS: Glucose Urine UA Negative (Normal); Nitrate Urine Negative (Negative); Specific Gravity, Urine 1.020 (1.005-1.030)
[2025-04-09 20:12] VITALS: BP 104/69; PULSE 77; TEMP 36.7; O2SAT 100
== END 2025-04-09 20:13 | disposition home or self-care (01) ==
PROVIDERS: Emergency Provider Physician Assistant; PCP Nurse Practitioner Family
DX: B34.9 Viral infection, unspecified (principal); Z87.891 Personal history of nicotine dependence
CPT/HCPCS: 81001; 99283